=== PATIENT | male | born 1955 | race Caucasian/White ===

== ENCOUNTER 2020-08-19 20:20 | Inpatient (IN) ==
[2020-08-20] MEDS ORDERED: Acetaminophen 325 MG TABLET PO PRN (15:52)
[2020-08-20] MEDS ORDERED: Ondansetron ODT 4 MG TAB.RAPDIS SL PRN (15:52)
[2020-08-20] MEDS ORDERED: Dextrose Gel 15 GM/37.5 ML TUBE PO PRN ×2 (15:56)
[2020-08-20] MEDS ORDERED: D5% in Water 1,000 ML IVC PRN (15:56)
[2020-08-20] MEDS ORDERED: *HR* Dextrose 50 % in Water (Vial) 50 ML VIAL IVP PRN (15:56)
[2020-08-20] MEDS: Insulin LISPRO 300 UNITS/3 ML VIAL SUBQ SCH ×2 (17:37→21:10)
[2020-08-20] MEDS: Furosemide 20 MG TABLET PO SCH (17:41)
[2020-08-20] MEDS: Apixaban 5 MG TABLET PO SCH (21:00)
[2020-08-20] MEDS: *HR* Ticagrelor 90 MG TABLET PO SCH (21:01)
[2020-08-20] MEDS: Gabapentin 100 MG CAPSULE PO SCH (21:01)
[2020-08-21 06:39] LABS: Basophils # 0.1 K/mcL (0.0-0.2); Basophils % 0.5 %; Eosinophils # 0.1 K/mcL (0.0-0.6); Eosinophils % 0.3 %; Hematocrit 33.9 % (37.5-50.1); Hemoglobin 10.5 g/dL (12.9-16.9); Immature Granulocytes % 2.7 % (0-4); Lymphocytes # 2.4 K/mcL (0.6-4.6); Lymphocytes % 12.8 %; Mean Corpuscular Hemoglobin 24.9 pg (28.0-33.3); Mean Corpuscular Volume 80.3 fL (83.0-100.0); Mean Platelet Volume 9.2 fL (9.4-12.4); Monocytes % 8.2 %; Neutrophils # 14.2 K/mcL (1.6-8.9); Nucleated Red Blood Cells 0.2 /100 WBC (0); Platelet Count 471 K/mcL (140-400); Red Blood Count 4.22 M/mcL (4.19-5.50); Red Cell Distribution Width 17.3 % (11.5-14.5); Segmented Neutrophils % 75.5 %; White Blood Count 18.8 K/mcL (4.3-11.1)
[2020-08-21 06:41] LABS: Monocytes # 1.5 K/mcL (0.0-1.3)
[2020-08-21 06:55] LABS: INR 2.7; Prothrombin Time 30.8 Seconds (9.4-12.1)
[2020-08-21 07:38] LABS: Calcium 8.7 mg/dL (8.6-10.3); Potassium 4.5 mEq/L (3.5-5.1)
[2020-08-21] MEDS: DilTIAZem CD (24hr) 120 MG CAP.ER.24H PO SCH (08:21)
[2020-08-21] MEDS: *HR* Amiodarone 200 MG TABLET PO SCH (08:21)
[2020-08-21] MEDS: Spironolactone 25 MG TABLET PO SCH (08:21)
[2020-08-21] MEDS: Apixaban 5 MG TABLET PO SCH ×2 (08:22→20:40)
[2020-08-21] MEDS: Insulin LISPRO 300 UNITS/3 ML VIAL SUBQ SCH ×4 (08:22→20:41)
[2020-08-21] MEDS: Gabapentin 100 MG CAPSULE PO SCH ×3 (08:22→20:41)
[2020-08-21] MEDS: Furosemide 20 MG TABLET PO SCH ×3 (08:22→17:49)
[2020-08-21] MEDS: *HR* Ticagrelor 90 MG TABLET PO SCH ×2 (08:22→20:40)
[2020-08-21] MEDS: *HR* Digoxin 0.125 MG TABLET PO SCH (08:22)
[2020-08-21] MEDS: Aspirin Enteric Coated 81 MG Tablet PO SCH (08:22)
[2020-08-21] MEDS ORDERED: *HR* SitaGLIPtin 100 MG TABLET PO SCH (09:00)
[2020-08-21] MEDS: EMPAGLIFLOZIN 10 MG PO SCH (11:01)
[2020-08-21] MEDS: Fluticasone Propionate Nasal 50 MCG/SPRAY BOTTLE NS SCH (11:04)
[2020-08-21] MEDS ORDERED: Ipratropium/Albuterol Neb 3 ML IH PRN (16:23)
[2020-08-21] MEDS: Melatonin 3 MG TABLET PO PRN (20:41)
[2020-08-22 08:41] LABS: Hematocrit 35.2 % (37.5-50.1); Hemoglobin 10.8 g/dL (12.9-16.9); Mean Corpuscular HGB Conc 30.7 g/dL (31.6-35.5); Mean Corpuscular Hemoglobin 24.8 pg (28.0-33.3); Mean Corpuscular Volume 80.9 fL (83.0-100.0); Mean Platelet Volume 9.5 fL (9.4-12.4); Platelet Count 444 K/mcL (140-400); Red Blood Count 4.35 M/mcL (4.19-5.50); Red Cell Distribution Width 17.8 % (11.5-14.5); White Blood Count 15.5 K/mcL (4.3-11.1)
[2020-08-22] MEDS: Fluticasone Propionate Nasal 50 MCG/SPRAY BOTTLE NS SCH (08:47)
[2020-08-22] MEDS: Insulin LISPRO 300 UNITS/3 ML VIAL SUBQ SCH ×4 (08:47→20:13)
[2020-08-22] MEDS: *HR* SitaGLIPtin 25 MG TABLET PO SCH (08:48)
[2020-08-22] MEDS: *HR* Digoxin 0.125 MG TABLET PO SCH (08:48)
[2020-08-22] MEDS: *HR* Ticagrelor 90 MG TABLET PO SCH ×2 (08:48→20:15)
[2020-08-22] MEDS: Aspirin Enteric Coated 81 MG Tablet PO SCH (08:49)
[2020-08-22] MEDS: *HR* Amiodarone 200 MG TABLET PO SCH (08:49)
[2020-08-22] MEDS: Apixaban 5 MG TABLET PO SCH ×2 (08:49→20:15)
[2020-08-22] MEDS: Gabapentin 100 MG CAPSULE PO SCH ×3 (08:49→20:14)
[2020-08-22] MEDS: Spironolactone 25 MG TABLET PO SCH (08:49)
[2020-08-22] MEDS: DilTIAZem CD (24hr) 120 MG CAP.ER.24H PO SCH (08:49)
[2020-08-22] MEDS: Furosemide 20 MG TABLET PO SCH ×2 (08:50→16:50)
[2020-08-22] MEDS: EMPAGLIFLOZIN 10 MG PO SCH (08:50)
[2020-08-22 09:00] LABS: Calcium 8.5 mg/dL (8.6-10.3); Potassium 4.4 mEq/L (3.5-5.1)
[2020-08-22] MEDS: Insulin DETEMIR 100 UNIT/ML X5UNITS SUBQ SCH ×2 (13:38→20:14)
[2020-08-23] MEDS: Melatonin 3 MG TABLET PO PRN ×2 (02:22→21:03)
[2020-08-23] MEDS: Aspirin Enteric Coated 81 MG Tablet PO SCH (07:50)
[2020-08-23] MEDS: *HR* SitaGLIPtin 25 MG TABLET PO SCH (07:50)
[2020-08-23] MEDS: *HR* Ticagrelor 90 MG TABLET PO SCH ×2 (07:51→21:03)
[2020-08-23] MEDS: Gabapentin 100 MG CAPSULE PO SCH ×3 (07:51→21:02)
[2020-08-23] MEDS: Furosemide 20 MG TABLET PO SCH ×2 (07:51→17:11)
[2020-08-23] MEDS: *HR* Digoxin 0.125 MG TABLET PO SCH (07:51)
[2020-08-23] MEDS: *HR* Amiodarone 200 MG TABLET PO SCH (07:51)
[2020-08-23] MEDS: Apixaban 5 MG TABLET PO SCH ×2 (07:52→21:03)
[2020-08-23] MEDS: Fluticasone Propionate Nasal 50 MCG/SPRAY BOTTLE NS SCH (07:53)
[2020-08-23] MEDS: Spironolactone 25 MG TABLET PO SCH (07:54)
[2020-08-23] MEDS: DilTIAZem CD (24hr) 120 MG CAP.ER.24H PO SCH (07:54)
[2020-08-23] MEDS: EMPAGLIFLOZIN 10 MG PO SCH (07:55)
[2020-08-23] MEDS: Insulin LISPRO 300 UNITS/3 ML VIAL SUBQ SCH ×4 (09:19→21:12)
[2020-08-23] MEDS: Insulin DETEMIR 100 UNIT/ML X5UNITS SUBQ SCH ×2 (09:52→21:02)
[2020-08-24] MEDS: Insulin LISPRO 300 UNITS/3 ML VIAL SUBQ SCH ×4 (07:34→21:54)
[2020-08-24] MEDS: EMPAGLIFLOZIN 10 MG PO SCH (07:46)
[2020-08-24] MEDS: *HR* Digoxin 0.125 MG TABLET PO SCH (09:40)
[2020-08-24] MEDS: Spironolactone 25 MG TABLET PO SCH (09:41)
[2020-08-24] MEDS: Aspirin Enteric Coated 81 MG Tablet PO SCH (09:41)
[2020-08-24] MEDS: DilTIAZem CD (24hr) 120 MG CAP.ER.24H PO SCH (09:41)
[2020-08-24] MEDS: Gabapentin 100 MG CAPSULE PO SCH ×3 (09:41→21:53)
[2020-08-24] MEDS: Apixaban 5 MG TABLET PO SCH ×2 (09:41→21:53)
[2020-08-24] MEDS: *HR* SitaGLIPtin 25 MG TABLET PO SCH (09:41)
[2020-08-24] MEDS: Furosemide 20 MG TABLET PO SCH ×2 (09:41→16:29)
[2020-08-24] MEDS: *HR* Amiodarone 200 MG TABLET PO SCH (09:42)
[2020-08-24] MEDS: Insulin DETEMIR 100 UNIT/ML X5UNITS SUBQ SCH ×2 (09:42→21:54)
[2020-08-24] MEDS: *HR* Ticagrelor 90 MG TABLET PO SCH ×2 (09:42→21:53)
[2020-08-24] MEDS: Fluticasone Propionate Nasal 50 MCG/SPRAY BOTTLE NS SCH (09:51)
[2020-08-24] MEDS ORDERED: *HR* HYDROcodone/Acet 5/325 mg TABLET PO PRN (14:12)
[2020-08-24] MEDS: Melatonin 3 MG TABLET PO PRN (21:53)
[2020-08-25] MEDS: Insulin LISPRO 300 UNITS/3 ML VIAL SUBQ SCH ×4 (07:55→21:15)
[2020-08-25] MEDS: *HR* SitaGLIPtin 25 MG TABLET PO SCH (08:07)
[2020-08-25] MEDS: Furosemide 20 MG TABLET PO SCH ×2 (08:08→16:28)
[2020-08-25] MEDS: Apixaban 5 MG TABLET PO SCH ×2 (08:08→19:54)
[2020-08-25] MEDS: Spironolactone 25 MG TABLET PO SCH (08:08)
[2020-08-25] MEDS: *HR* Ticagrelor 90 MG TABLET PO SCH ×2 (08:08→19:54)
[2020-08-25] MEDS: Aspirin Enteric Coated 81 MG Tablet PO SCH (08:08)
[2020-08-25] MEDS: Gabapentin 100 MG CAPSULE PO SCH ×3 (08:08→19:54)
[2020-08-25] MEDS: *HR* Digoxin 0.125 MG TABLET PO SCH (08:08)
[2020-08-25] MEDS: DilTIAZem CD (24hr) 120 MG CAP.ER.24H PO SCH (08:08)
[2020-08-25] MEDS: *HR* Amiodarone 200 MG TABLET PO SCH (08:08)
[2020-08-25] MEDS: Insulin DETEMIR 100 UNIT/ML X5UNITS SUBQ SCH ×2 (09:48→21:15)
[2020-08-25] MEDS: Fluticasone Propionate Nasal 50 MCG/SPRAY BOTTLE NS SCH (09:48)
[2020-08-25] MEDS: EMPAGLIFLOZIN 10 MG PO SCH (09:50)
[2020-08-25 10:35] LABS: Basophils # 0.1 K/mcL (0.0-0.2); Basophils % 0.4 %; Hematocrit 33.8 % (37.5-50.1); Hemoglobin 10.3 g/dL (12.9-16.9); Immature Granulocytes % 2.4 % (0-4); Lymphocytes # 1.3 K/mcL (0.6-4.6); Mean Corpuscular HGB Conc 30.5 g/dL (31.6-35.5); Mean Corpuscular Hemoglobin 24.8 pg (28.0-33.3); Mean Corpuscular Volume 81.3 fL (83.0-100.0); Mean Platelet Volume 9.1 fL (9.4-12.4); Monocytes # 1.7 K/mcL (0.0-1.3); Neutrophils # 17.8 K/mcL (1.6-8.9); Nucleated Red Blood Cells 0.1 /100 WBC (0); Platelet Count 413 K/mcL (140-400); Red Blood Count 4.16 M/mcL (4.19-5.50); Red Cell Distribution Width 17.7 % (11.5-14.5); Segmented Neutrophils % 83.2 %; White Blood Count 21.4 K/mcL (4.3-11.1)
[2020-08-25 10:48] LABS: BUN/Creatinine Ratio 23 (6-26); Blood Urea Nitrogen 27 mg/dL (8-23); Calcium 8.6 mg/dL (8.6-10.3); Carbon Dioxide 24 mEq/L (23-29); Chloride 99 mEq/L (98-107); Glucose 123 mg/dL (70-105); Osmolality,Calculated 276 (280-300); Potassium 4.1 mEq/L (3.5-5.1); Sodium 130 mEq/L (136-145); eGFR For African Americans > 60 (> 60); eGFR For Non-African Americans > 60 (> 60)
[2020-08-25] MEDS ORDERED: Furosemide 20 MG TABLET PO STA (14:26)
[2020-08-25] MEDS: Doxycycline 100 MG in 0.9 % Sodium Chloride Mini Bag 100 ML IVPB SCH (19:49)
[2020-08-25 21:04] LABS: Bilirubin,Urine Negative (Negative); Blood,Urine Trace-lysed (Negative); Clarity,Urine Clear (Clear); Color,Urine Yellow (Yellow); Glucose,Urine (UA) Normal (Normal); Ketones,Urine Negative (Negative); Leukocyte Esterase,Urine Trace (Negative); Nitrite,Urine Negative (Negative); PH,Urine 5.5 pH Units (5.0-8.0); Protein,Urine Negative (Neg-Trace); Specific Gravity,Urine 1.015 (1.010-1.025); Urobilinogen,Urine Normal (Normal)
[2020-08-25] MEDS ORDERED: 0.9 % Sodium Chloride 500 ML ONE (22:10)
[2020-08-26 01:19] LABS: Basophils # 0.1 K/mcL (0.0-0.2); Basophils % 0.4 %; Eosinophils % 0.1 %; Hematocrit 34.1 % (37.5-50.1); Hemoglobin 10.4 g/dL (12.9-16.9); Immature Granulocytes % 3.9 % (0-4); Lymphocytes % 7.1 %; Mean Corpuscular HGB Conc 30.5 g/dL (31.6-35.5); Mean Corpuscular Hemoglobin 24.8 pg (28.0-33.3); Mean Corpuscular Volume 81.2 fL (83.0-100.0); Mean Platelet Volume 9.2 fL (9.4-12.4); Monocytes # 1.5 K/mcL (0.0-1.3); Monocytes % 6.1 %; Neutrophils # 20.3 K/mcL (1.6-8.9); Platelet Count 456 K/mcL (140-400); Red Cell Distribution Width 17.8 % (11.5-14.5); Segmented Neutrophils % 82.4 %; White Blood Count 24.6 K/mcL (4.3-11.1)
[2020-08-26 01:28] LABS: Lymphocytes # 1.8 K/mcL (0.6-4.6)
[2020-08-26 01:30] LABS: BUN/Creatinine Ratio 22 (6-26); Blood Urea Nitrogen 26 mg/dL (8-23); Calcium 8.3 mg/dL (8.6-10.3); Carbon Dioxide 21 mEq/L (23-29); Chloride 99 mEq/L (98-107); Glucose 125 mg/dL (70-105); Osmolality,Calculated 274 (280-300); Potassium 4.3 mEq/L (3.5-5.1); Sodium 129 mEq/L (136-145); eGFR For African Americans > 60 (> 60); eGFR For Non-African Americans > 60 (> 60)
[2020-08-26] MEDS: Doxycycline 100 MG in 0.9 % Sodium Chloride Mini Bag 100 ML IVPB SCH (05:25)
[2020-08-26] MEDS ORDERED: Furosemide 20 MG/2 ML VIAL IVP ONE (09:10)
[2020-08-26] MEDS ORDERED: methylPREDNISolone 125 MG/2 ML VIAL IVP ONE (09:11)
[2020-08-26] MEDS: Insulin LISPRO 300 UNITS/3 ML VIAL SUBQ SCH ×4 (09:43→21:28)
[2020-08-26] MEDS: DilTIAZem CD (24hr) 120 MG CAP.ER.24H PO SCH (09:56)
[2020-08-26] MEDS: *HR* Digoxin 0.125 MG TABLET PO SCH (09:58)
[2020-08-26] MEDS: *HR* Ticagrelor 90 MG TABLET PO SCH ×2 (09:58→20:53)
[2020-08-26] MEDS: Spironolactone 25 MG TABLET PO SCH (09:58)
[2020-08-26] MEDS: *HR* Amiodarone 200 MG TABLET PO SCH (09:58)
[2020-08-26] MEDS: Aspirin Enteric Coated 81 MG Tablet PO SCH (09:58)
[2020-08-26] MEDS: Apixaban 5 MG TABLET PO SCH ×2 (09:58→20:53)
[2020-08-26] MEDS: Gabapentin 100 MG CAPSULE PO SCH ×3 (09:58→20:53)
[2020-08-26] MEDS: *HR* SitaGLIPtin 25 MG TABLET PO SCH (09:59)
[2020-08-26] MEDS: Furosemide 20 MG TABLET PO SCH (09:59)
[2020-08-26] MEDS: Insulin DETEMIR 100 UNIT/ML X5UNITS SUBQ SCH ×2 (10:01→20:53)
[2020-08-26] MEDS: Fluticasone Propionate Nasal 50 MCG/SPRAY BOTTLE NS SCH (10:08)
[2020-08-26] MEDS: Ipratropium/Albuterol Neb 3 ML IH SCH ×4 (11:17→20:21)
[2020-08-26 11:49] LABS: ABG Base Excess -4 mEq/L (-2 to 3); ABG HCO3 18 mEq/L (21-27); ABG Oxygen Saturation 91 % (95-98); ABG PCO2 23 mmHg (35-45); ABG PO2 53 mmHg (85-104); ABG TCO2 19 mEq/L (20-26)
[2020-08-26] MEDS: EMPAGLIFLOZIN 10 MG PO SCH (11:55)
[2020-08-26 12:58] LABS: Estimated Average Glucose 166 mg/dl; Hemoglobin A1C 7.4 %
[2020-08-26] MEDS: MethylPREDNISolone 40 MG/ML VIAL IVP SCH (15:23)
[2020-08-26] MEDS: Piperacillin/Tazobactam 3.375 GM in 0.9 % Sodium Chloride Mini Bag 100 ML IVPB SCH (16:46)
[2020-08-26] MEDS: Furosemide 20 MG/2 ML VIAL IVP SCH (16:54)
[2020-08-26 23:36] LABS: Adenovirus Not Detected (Not Detect); Bordetella Pertussis Not Detected (Not Detect); Chlamydophila pneumoniae Not Detected (Not Detect); Coronavirus 229E Not Detected (Not Detect); Coronavirus HKU1 Not Detected (Not Detect); Coronavirus NL63 Not Detected (Not Detect); Coronavirus OC43 Not Detected (Not Detect); Human Metapneumovirus Not Detected (Not Detect); Human Rhinovirus/Enterovirus Not Detected (Not Detect); Influenza A Subtype 2009 H1 Not Detected (Not Detect); Influenza B Not Detected (Not Detect); Mycoplasma pneumoniae Not Detected (Not Detect); Parainfluenza Virus 1 Not Detected (Not Detect); Parainfluenza Virus 2 Not Detected (Not Detect); Parainfluenza Virus 3 Not Detected (Not Detect); Parainfluenza Virus 4 Not Detected (Not Detect); Respiratory Syncytial Virus Not Detected (Not Detect); SARS-CoV-2 Not Detected (Not Detect)
[2020-08-27] MEDS: Piperacillin/Tazobactam 3.375 GM in 0.9 % Sodium Chloride Mini Bag 100 ML IVPB SCH ×2 (00:04→09:48)
[2020-08-27] MEDS: MethylPREDNISolone 40 MG/ML VIAL IVP SCH ×2 (00:15→09:44)
[2020-08-27 04:08] LABS: Basophils % 0.1 %; Hematocrit 31.5 % (37.5-50.1); Hemoglobin 9.8 g/dL (12.9-16.9); Immature Granulocytes % 1.6 % (0-4); Lymphocytes % 2.2 %; Mean Corpuscular HGB Conc 31.1 g/dL (31.6-35.5); Mean Corpuscular Hemoglobin 24.6 pg (28.0-33.3); Mean Corpuscular Volume 78.9 fL (83.0-100.0); Mean Platelet Volume 9.5 fL (9.4-12.4); Monocytes % 3.4 %; Neutrophils # 27.2 K/mcL (1.6-8.9); Platelet Count 471 K/mcL (140-400); Red Blood Count 3.99 M/mcL (4.19-5.50); Red Cell Distribution Width 17.5 % (11.5-14.5); Segmented Neutrophils % 92.7 %; White Blood Count 29.3 K/mcL (4.3-11.1)
[2020-08-27 04:09] LABS: Lymphocytes # 0.6 K/mcL (0.6-4.6)
[2020-08-27 04:58] LABS: BUN/Creatinine Ratio 24 (6-26); Blood Urea Nitrogen 29 mg/dL (8-23); Calcium 8.6 mg/dL (8.6-10.3); Carbon Dioxide 18 mEq/L (23-29); Chloride 100 mEq/L (98-107); Glucose 250 mg/dL (70-105); Osmolality,Calculated 282 (280-300); Potassium 4.2 mEq/L (3.5-5.1); Sodium 129 mEq/L (136-145); eGFR For African Americans > 60 (> 60); eGFR For Non-African Americans 60 (> 60)
[2020-08-27 05:18] LABS: Platelet Estimate Increased (Normal)
[2020-08-27] MEDS: Ipratropium/Albuterol Neb 3 ML IH SCH ×4 (05:55→11:28)
[2020-08-27 07:43] LABS: ABG Base Excess -7 mEq/L (-2 to 3); ABG HCO3 15 mEq/L (21-27); ABG Oxygen Saturation 98 % (95-98); ABG PCO2 23 mmHg (35-45); ABG PH 7.43 pH Units (7.32-7.45); ABG PO2 95 mmHg (85-104); ABG TCO2 16 mEq/L (20-26); Blood Gas Pressure Support 12 cm H2O
[2020-08-27] MEDS: EMPAGLIFLOZIN 10 MG PO SCH (09:23)
[2020-08-27] MEDS: Insulin LISPRO 300 UNITS/3 ML VIAL SUBQ SCH (09:36)
[2020-08-27] MEDS: Furosemide 20 MG/2 ML VIAL IVP SCH (09:39)
[2020-08-27] MEDS: Gabapentin 100 MG CAPSULE PO SCH (09:55)
[2020-08-27] MEDS: *HR* Ticagrelor 90 MG TABLET PO SCH (09:55)
[2020-08-27] MEDS: *HR* Amiodarone 200 MG TABLET PO SCH (09:55)
[2020-08-27] MEDS: Spironolactone 25 MG TABLET PO SCH (09:56)
[2020-08-27] MEDS: Aspirin Enteric Coated 81 MG Tablet PO SCH (09:56)
[2020-08-27] MEDS: Fluticasone Propionate Nasal 50 MCG/SPRAY BOTTLE NS SCH (09:56)
[2020-08-27] MEDS: *HR* SitaGLIPtin 25 MG TABLET PO SCH (09:56)
[2020-08-27] MEDS: Apixaban 5 MG TABLET PO SCH (09:56)
[2020-08-27] MEDS: Insulin DETEMIR 100 UNIT/ML X5UNITS SUBQ SCH (09:57)
[2020-08-27] MEDS: *HR* Digoxin 0.125 MG TABLET PO SCH (09:57)
[2020-08-27 10:14] VITALS: BP 93/57
== END 2020-08-27 11:20 | disposition short-term general hospital (02) | DRG 945 ==
LOC: INPPIK 08-20 16:26
PROVIDERS: ADMIT Family Medicine; ATTEND Family Medicine

== ENCOUNTER 2020-11-14 18:27 | Inpatient (IN) ==
[2020-11-14] MEDS ORDERED: Simethicone 80 MG TAB.CHEW PO PRN (18:58)
[2020-11-14] MEDS ORDERED: *HR* Dextrose 50 % in Water (Vial) 50 ML VIAL IVP PRN (19:09)
[2020-11-14] MEDS ORDERED: D5% in Water 1,000 ML IVC PRN (19:09)
[2020-11-14] MEDS ORDERED: Dextrose Gel 15 GM/37.5 ML TUBE PO PRN ×2 (19:09)
[2020-11-14] MEDS: Apixaban 5 MG TABLET PO SCH (22:38)
[2020-11-14] MEDS: Gabapentin 100 MG CAPSULE PO SCH (22:38)
[2020-11-14] MEDS: Melatonin 3 MG TABLET PO PRN (22:38)
[2020-11-14] MEDS: *HR* HYDROcodone/Acet 10/325 mg TABLET PO PRN (22:39)
[2020-11-14] MEDS: *HR* Ticagrelor 90 MG TABLET PO SCH (22:39)
[2020-11-14] MEDS: Insulin LISPRO 300 UNITS/3 ML VIAL SUBQ SCH (22:39)
[2020-11-15] MEDS: *HR* HYDROcodone/Acet 10/325 mg TABLET PO PRN ×3 (06:30→21:02)
[2020-11-15 07:10] LABS: Basophils # 0.1 K/mcL (0.0-0.2); Basophils % 0.7 %; Eosinophils % 0.2 %; Hematocrit 36.5 % (37.5-50.1); Hemoglobin 11.3 g/dL (12.9-16.9); Immature Granulocytes % 1.4 % (0-4); Lymphocytes # 1.5 K/mcL (0.6-4.6); Lymphocytes % 10.5 %; Mean Corpuscular Volume 87.1 fL (83.0-100.0); Monocytes # 1.4 K/mcL (0.0-1.3); Monocytes % 9.8 %; Platelet Count 351 K/mcL (140-400); Red Blood Count 4.19 M/mcL (4.19-5.50); Red Cell Distribution Width 19.4 % (11.5-14.5); Segmented Neutrophils % 77.4 %; White Blood Count 14.5 K/mcL (4.3-11.1)
[2020-11-15 07:18] LABS: Neutrophils # 11.2 K/mcL (1.6-8.9)
[2020-11-15 07:30] LABS: BUN/Creatinine Ratio 21 (6-26); Blood Urea Nitrogen 27 mg/dL (8-23); Calcium 9.1 mg/dL (8.6-10.3); Carbon Dioxide 29 mEq/L (23-29); Chloride 94 mEq/L (98-107); Glucose 107 mg/dL (70-105); Osmolality,Calculated 278 (280-300); Sodium 131 mEq/L (136-145); eGFR For African Americans > 60 (> 60); eGFR For Non-African Americans 57 (> 60)
[2020-11-15] MEDS: Insulin LISPRO 300 UNITS/3 ML VIAL SUBQ SCH ×4 (07:37→21:01)
[2020-11-15] MEDS: Apixaban 5 MG TABLET PO SCH ×2 (07:40→21:02)
[2020-11-15] MEDS: Gabapentin 100 MG CAPSULE PO SCH ×3 (07:40→21:02)
[2020-11-15] MEDS: *HR* SitaGLIPtin 25 MG TABLET PO SCH (07:40)
[2020-11-15] MEDS: Aspirin Enteric Coated 81 MG Tablet PO SCH (07:40)
[2020-11-15] MEDS: *HR* Ticagrelor 90 MG TABLET PO SCH ×2 (07:40→21:02)
[2020-11-15] MEDS: *HR* Amiodarone 200 MG TABLET PO SCH (07:41)
[2020-11-15] MEDS: TRADJENTA 5 MG PO SCH (11:41)
[2020-11-15] MEDS: Spironolactone 25 MG TABLET PO SCH (11:41)
[2020-11-15] MEDS: (Empagliflozin [Jardiance] 10 MG Tablet) PO SCH (11:41)
[2020-11-15] MEDS: *HR* Digoxin 0.125 MG TABLET PO SCH (11:41)
[2020-11-15] MEDS: Furosemide 40 MG TABLET PO SCH (11:41)
[2020-11-15] MEDS: Furosemide 20 MG TABLET PO SCH (12:15)
[2020-11-15] MEDS: Nystatin POWDER 30 GM BOTTLE TP SCH ×2 (13:59→21:03)
[2020-11-15] MEDS: Melatonin 3 MG TABLET PO PRN (21:02)
[2020-11-16] MEDS: Insulin LISPRO 300 UNITS/3 ML VIAL SUBQ SCH ×4 (07:12→20:54)
[2020-11-16] MEDS: *HR* HYDROcodone/Acet 10/325 mg TABLET PO PRN ×3 (07:33→20:53)
[2020-11-16] MEDS: Aspirin Enteric Coated 81 MG Tablet PO SCH (07:33)
[2020-11-16] MEDS: Gabapentin 100 MG CAPSULE PO SCH ×3 (07:33→20:53)
[2020-11-16] MEDS: Spironolactone 25 MG TABLET PO SCH (07:33)
[2020-11-16] MEDS: *HR* Digoxin 0.125 MG TABLET PO SCH (07:33)
[2020-11-16] MEDS: Apixaban 5 MG TABLET PO SCH ×2 (07:33→20:53)
[2020-11-16] MEDS: *HR* SitaGLIPtin 25 MG TABLET PO SCH (07:33)
[2020-11-16] MEDS: *HR* Amiodarone 200 MG TABLET PO SCH (07:34)
[2020-11-16] MEDS: (Empagliflozin [Jardiance] 10 MG Tablet) PO SCH (07:34)
[2020-11-16] MEDS: TRADJENTA 5 MG PO SCH (07:34)
[2020-11-16] MEDS: *HR* Ticagrelor 90 MG TABLET PO SCH ×2 (07:34→20:53)
[2020-11-16] MEDS: Nystatin POWDER 30 GM BOTTLE TP SCH ×2 (07:55→20:55)
[2020-11-16] MEDS: Furosemide 40 MG TABLET PO SCH (11:46)
[2020-11-16] MEDS: Furosemide 20 MG TABLET PO SCH (14:45)
[2020-11-16] MEDS: Melatonin 3 MG TABLET PO PRN (20:52)
[2020-11-17] MEDS: *HR* Digoxin 0.125 MG TABLET PO SCH (08:08)
[2020-11-17] MEDS: Aspirin Enteric Coated 81 MG Tablet PO SCH (08:09)
[2020-11-17] MEDS: Gabapentin 100 MG CAPSULE PO SCH ×3 (08:09→20:26)
[2020-11-17] MEDS: *HR* Ticagrelor 90 MG TABLET PO SCH ×2 (08:09→20:26)
[2020-11-17] MEDS: *HR* Amiodarone 200 MG TABLET PO SCH (08:09)
[2020-11-17] MEDS: Apixaban 5 MG TABLET PO SCH ×2 (08:09→20:26)
[2020-11-17] MEDS: *HR* SitaGLIPtin 25 MG TABLET PO SCH (08:09)
[2020-11-17] MEDS: Furosemide 40 MG TABLET PO SCH (08:09)
[2020-11-17] MEDS: (Empagliflozin [Jardiance] 10 MG Tablet) PO SCH (08:10)
[2020-11-17] MEDS: TRADJENTA 5 MG PO SCH (08:10)
[2020-11-17] MEDS: Spironolactone 25 MG TABLET PO SCH (08:10)
[2020-11-17] MEDS: Insulin LISPRO 300 UNITS/3 ML VIAL SUBQ SCH ×4 (08:13→23:05)
[2020-11-17] MEDS: Nystatin POWDER 30 GM BOTTLE TP SCH ×2 (08:19→20:27)
[2020-11-17] MEDS: Furosemide 20 MG TABLET PO SCH (11:48)
[2020-11-17] MEDS: *HR* HYDROcodone/Acet 10/325 mg TABLET PO PRN ×2 (14:12→20:26)
[2020-11-17] MEDS: Melatonin 3 MG TABLET PO PRN (20:26)
[2020-11-18] MEDS: *HR* HYDROcodone/Acet 10/325 mg TABLET PO PRN ×3 (06:11→21:01)
[2020-11-18] MEDS: Insulin LISPRO 300 UNITS/3 ML VIAL SUBQ SCH ×4 (07:45→21:03)
[2020-11-18] MEDS: *HR* SitaGLIPtin 25 MG TABLET PO SCH (07:47)
[2020-11-18] MEDS: Spironolactone 25 MG TABLET PO SCH (07:48)
[2020-11-18] MEDS: *HR* Amiodarone 200 MG TABLET PO SCH (07:48)
[2020-11-18] MEDS: Furosemide 40 MG TABLET PO SCH (07:48)
[2020-11-18] MEDS: *HR* Ticagrelor 90 MG TABLET PO SCH ×2 (07:48→21:01)
[2020-11-18] MEDS: Aspirin Enteric Coated 81 MG Tablet PO SCH (07:48)
[2020-11-18] MEDS: Gabapentin 100 MG CAPSULE PO SCH ×3 (07:48→21:01)
[2020-11-18] MEDS: Apixaban 5 MG TABLET PO SCH ×2 (07:48→21:01)
[2020-11-18] MEDS: *HR* Digoxin 0.125 MG TABLET PO SCH (07:48)
[2020-11-18] MEDS: TRADJENTA 5 MG PO SCH (07:49)
[2020-11-18] MEDS: (Empagliflozin [Jardiance] 10 MG Tablet) PO SCH (07:49)
[2020-11-18] MEDS: Nystatin POWDER 30 GM BOTTLE TP SCH ×2 (07:49→21:05)
[2020-11-18] MEDS: Furosemide 20 MG TABLET PO SCH (13:24)
[2020-11-18] MEDS: *HR* HYDROcodone/Acet 5/325 mg TABLET PO PRN (17:51)
[2020-11-18] MEDS: Melatonin 3 MG TABLET PO PRN (21:01)
[2020-11-19] MEDS: *HR* HYDROcodone/Acet 5/325 mg TABLET PO PRN (00:39)
[2020-11-19] MEDS: Insulin LISPRO 300 UNITS/3 ML VIAL SUBQ SCH ×4 (08:04→20:49)
[2020-11-19 08:07] LABS: Basophils # 0.1 K/mcL (0.0-0.2); Basophils % 1.1 %; Eosinophils # 0.4 K/mcL (0.0-0.6); Eosinophils % 3.1 %; Hematocrit 33.9 % (37.5-50.1); Hemoglobin 10.5 g/dL (12.9-16.9); Immature Granulocytes % 4.2 % (0-4); Lymphocytes # 2.2 K/mcL (0.6-4.6); Lymphocytes % 17.1 %; Mean Corpuscular Hemoglobin 27.1 pg (28.0-33.3); Mean Corpuscular Volume 87.6 fL (83.0-100.0); Mean Platelet Volume 8.7 fL (9.4-12.4); Monocytes # 1.1 K/mcL (0.0-1.3); Monocytes % 8.4 %; Neutrophils # 8.3 K/mcL (1.6-8.9); Platelet Count 423 K/mcL (140-400); Red Blood Count 3.87 M/mcL (4.19-5.50); Red Cell Distribution Width 18.3 % (11.5-14.5); Segmented Neutrophils % 66.1 %; White Blood Count 12.6 K/mcL (4.3-11.1)
[2020-11-19 08:18] LABS: BUN/Creatinine Ratio 33 (6-26); Blood Urea Nitrogen 40 mg/dL (8-23); Calcium 8.8 mg/dL (8.6-10.3); Carbon Dioxide 27 mEq/L (23-29); Chloride 94 mEq/L (98-107); Glucose 99 mg/dL (70-105); Osmolality,Calculated 280 (280-300); Sodium 130 mEq/L (136-145); eGFR For African Americans > 60 (> 60); eGFR For Non-African Americans 59 (> 60)
[2020-11-19] MEDS: *HR* HYDROcodone/Acet 10/325 mg TABLET PO PRN ×2 (08:58→20:49)
[2020-11-19] MEDS: *HR* Amiodarone 200 MG TABLET PO SCH (08:59)
[2020-11-19] MEDS: Apixaban 5 MG TABLET PO SCH ×2 (08:59→20:49)
[2020-11-19] MEDS: Aspirin Enteric Coated 81 MG Tablet PO SCH (08:59)
[2020-11-19] MEDS: Furosemide 40 MG TABLET PO SCH (08:59)
[2020-11-19] MEDS: Gabapentin 100 MG CAPSULE PO SCH ×3 (08:59→20:49)
[2020-11-19] MEDS: Spironolactone 25 MG TABLET PO SCH (09:03)
[2020-11-19] MEDS: *HR* Ticagrelor 90 MG TABLET PO SCH ×2 (09:03→20:48)
[2020-11-19] MEDS: *HR* SitaGLIPtin 25 MG TABLET PO SCH (09:03)
[2020-11-19] MEDS: *HR* Digoxin 0.125 MG TABLET PO SCH (09:21)
[2020-11-19] MEDS: Nystatin POWDER 30 GM BOTTLE TP SCH ×2 (09:23→20:49)
[2020-11-19] MEDS: (Empagliflozin [Jardiance] 10 MG Tablet) PO SCH (09:26)
[2020-11-19] MEDS: TRADJENTA 5 MG PO SCH (09:27)
[2020-11-19] MEDS: Furosemide 20 MG TABLET PO SCH (12:00)
[2020-11-19] MEDS: Melatonin 3 MG TABLET PO PRN (20:48)
[2020-11-20] MEDS: *HR* HYDROcodone/Acet 10/325 mg TABLET PO PRN (05:33)
[2020-11-20] MEDS: *HR* Ticagrelor 90 MG TABLET PO SCH ×2 (08:38→20:18)
[2020-11-20] MEDS: Aspirin Enteric Coated 81 MG Tablet PO SCH (08:38)
[2020-11-20] MEDS: Spironolactone 25 MG TABLET PO SCH (08:38)
[2020-11-20] MEDS: Gabapentin 100 MG CAPSULE PO SCH ×3 (08:38→20:18)
[2020-11-20] MEDS: Insulin LISPRO 300 UNITS/3 ML VIAL SUBQ SCH ×4 (08:38→20:17)
[2020-11-20] MEDS: *HR* HYDROcodone/Acet 5/325 mg TABLET PO PRN (08:38)
[2020-11-20] MEDS: Furosemide 40 MG TABLET PO SCH (08:38)
[2020-11-20] MEDS: *HR* Amiodarone 200 MG TABLET PO SCH (08:39)
[2020-11-20] MEDS: *HR* SitaGLIPtin 25 MG TABLET PO SCH (08:39)
[2020-11-20] MEDS: Apixaban 5 MG TABLET PO SCH ×2 (08:39→20:18)
[2020-11-20] MEDS: *HR* Digoxin 0.125 MG TABLET PO SCH (08:39)
[2020-11-20] MEDS: Nystatin POWDER 30 GM BOTTLE TP SCH ×2 (08:42→20:18)
[2020-11-20] MEDS: (Empagliflozin [Jardiance] 10 MG Tablet) PO SCH (08:45)
[2020-11-20] MEDS: TRADJENTA 5 MG PO SCH (08:45)
[2020-11-20] MEDS: Furosemide 20 MG TABLET PO SCH (12:06)
[2020-11-21] MEDS: *HR* HYDROcodone/Acet 10/325 mg TABLET PO PRN ×4 (03:04→20:05)
[2020-11-21] MEDS: Insulin LISPRO 300 UNITS/3 ML VIAL SUBQ SCH ×4 (07:40→20:05)
[2020-11-21] MEDS: Furosemide 40 MG TABLET PO SCH (08:02)
[2020-11-21] MEDS: *HR* SitaGLIPtin 25 MG TABLET PO SCH (08:02)
[2020-11-21] MEDS: *HR* Ticagrelor 90 MG TABLET PO SCH ×2 (08:03→20:05)
[2020-11-21] MEDS: Gabapentin 100 MG CAPSULE PO SCH ×3 (08:03→20:05)
[2020-11-21] MEDS: Spironolactone 25 MG TABLET PO SCH (08:03)
[2020-11-21] MEDS: Apixaban 5 MG TABLET PO SCH ×2 (08:03→20:05)
[2020-11-21] MEDS: *HR* Amiodarone 200 MG TABLET PO SCH (08:03)
[2020-11-21] MEDS: Aspirin Enteric Coated 81 MG Tablet PO SCH (08:03)
[2020-11-21] MEDS: *HR* Digoxin 0.125 MG TABLET PO SCH (08:03)
[2020-11-21] MEDS: Nystatin POWDER 30 GM BOTTLE TP SCH ×2 (08:04→20:06)
[2020-11-21] MEDS: TRADJENTA 5 MG PO SCH (08:06)
[2020-11-21] MEDS: (Empagliflozin [Jardiance] 10 MG Tablet) PO SCH (08:06)
[2020-11-21] MEDS: Furosemide 20 MG TABLET PO SCH (11:52)
[2020-11-21] MEDS: Melatonin 3 MG TABLET PO PRN (22:09)
[2020-11-21] MEDS: *HR* HYDROcodone/Acet 5/325 mg TABLET PO PRN (22:11)
[2020-11-22] MEDS: *HR* HYDROcodone/Acet 10/325 mg TABLET PO PRN ×2 (06:07→20:50)
[2020-11-22] MEDS: *HR* SitaGLIPtin 25 MG TABLET PO SCH (08:51)
[2020-11-22] MEDS: Aspirin Enteric Coated 81 MG Tablet PO SCH (08:52)
[2020-11-22] MEDS: *HR* Amiodarone 200 MG TABLET PO SCH (08:52)
[2020-11-22] MEDS: Spironolactone 25 MG TABLET PO SCH (08:52)
[2020-11-22] MEDS: Apixaban 5 MG TABLET PO SCH ×2 (08:52→20:50)
[2020-11-22] MEDS: *HR* Digoxin 0.125 MG TABLET PO SCH (08:52)
[2020-11-22] MEDS: *HR* HYDROcodone/Acet 5/325 mg TABLET PO PRN (08:52)
[2020-11-22] MEDS: Furosemide 40 MG TABLET PO SCH (08:52)
[2020-11-22] MEDS: Gabapentin 100 MG CAPSULE PO SCH ×3 (08:52→20:50)
[2020-11-22] MEDS: *HR* Ticagrelor 90 MG TABLET PO SCH ×2 (08:53→20:50)
[2020-11-22] MEDS: (Empagliflozin [Jardiance] 10 MG Tablet) PO SCH (08:54)
[2020-11-22] MEDS: Nystatin POWDER 30 GM BOTTLE TP SCH ×2 (08:54→20:51)
[2020-11-22] MEDS: TRADJENTA 5 MG PO SCH (08:54)
[2020-11-22] MEDS: Insulin LISPRO 300 UNITS/3 ML VIAL SUBQ SCH ×4 (08:55→20:55)
[2020-11-22] MEDS: Furosemide 20 MG TABLET PO SCH (13:20)
[2020-11-23] MEDS: *HR* HYDROcodone/Acet 10/325 mg TABLET PO PRN ×3 (00:38→20:06)
[2020-11-23] MEDS: Melatonin 3 MG TABLET PO PRN (00:38)
[2020-11-23] MEDS: Insulin LISPRO 300 UNITS/3 ML VIAL SUBQ SCH ×4 (10:00→20:06)
[2020-11-23] MEDS: *HR* Amiodarone 200 MG TABLET PO SCH (10:00)
[2020-11-23] MEDS: *HR* Digoxin 0.125 MG TABLET PO SCH (10:00)
[2020-11-23] MEDS: Gabapentin 100 MG CAPSULE PO SCH ×3 (10:00→20:06)
[2020-11-23] MEDS: *HR* Ticagrelor 90 MG TABLET PO SCH ×2 (10:00→20:06)
[2020-11-23] MEDS: Aspirin Enteric Coated 81 MG Tablet PO SCH (10:00)
[2020-11-23] MEDS: Nystatin POWDER 30 GM BOTTLE TP SCH ×2 (10:01→20:08)
[2020-11-23] MEDS: Furosemide 40 MG TABLET PO SCH (10:01)
[2020-11-23] MEDS: Spironolactone 25 MG TABLET PO SCH (10:01)
[2020-11-23] MEDS: Apixaban 5 MG TABLET PO SCH ×2 (10:01→20:06)
[2020-11-23] MEDS: *HR* SitaGLIPtin 25 MG TABLET PO SCH (10:01)
[2020-11-23] MEDS: TRADJENTA 5 MG PO SCH (10:02)
[2020-11-23] MEDS: (Empagliflozin [Jardiance] 10 MG Tablet) PO SCH (10:02)
[2020-11-23] MEDS: Furosemide 20 MG TABLET PO SCH (12:30)
[2020-11-23] MEDS: Ondansetron ODT 4 MG TAB.RAPDIS SL PRN (14:52)
[2020-11-23] MEDS: Lactobacillus 1 EACH CAP.SPRINK PO SCH ×2 (14:53→20:06)
[2020-11-24] MEDS: Melatonin 3 MG TABLET PO PRN ×2 (02:32→21:12)
[2020-11-24] MEDS: *HR* HYDROcodone/Acet 10/325 mg TABLET PO PRN ×3 (02:32→21:12)
[2020-11-24 06:19] LABS: Basophils # 0.1 K/mcL (0.0-0.2); Basophils % 0.6 %; Eosinophils # 0.1 K/mcL (0.0-0.6); Eosinophils % 0.7 %; Hemoglobin 10.1 g/dL (12.9-16.9); Immature Granulocytes % 1.8 % (0-4); Lymphocytes % 12.1 %; Mean Corpuscular HGB Conc 30.6 g/dL (31.6-35.5); Mean Corpuscular Hemoglobin 27.2 pg (28.0-33.3); Mean Corpuscular Volume 88.9 fL (83.0-100.0); Mean Platelet Volume 8.8 fL (9.4-12.4); Monocytes # 1.3 K/mcL (0.0-1.3); Monocytes % 7.9 %; Neutrophils # 12.5 K/mcL (1.6-8.9); Platelet Count 522 K/mcL (140-400); Red Blood Count 3.71 M/mcL (4.19-5.50); Segmented Neutrophils % 76.9 %; White Blood Count 16.2 K/mcL (4.3-11.1)
[2020-11-24 06:37] LABS: BUN/Creatinine Ratio 29 (6-26); Blood Urea Nitrogen 33 mg/dL (8-23); Calcium 8.7 mg/dL (8.6-10.3); Carbon Dioxide 26 mEq/L (23-29); Chloride 96 mEq/L (98-107); Glucose 85 mg/dL (70-105); Magnesium 1.8 mg/dL (1.6-2.6); Osmolality,Calculated 277 (280-300); Potassium 4.1 mEq/L (3.5-5.1); Sodium 130 mEq/L (136-145); eGFR For African Americans > 60 (> 60); eGFR For Non-African Americans > 60 (> 60)
[2020-11-24] MEDS: Insulin LISPRO 300 UNITS/3 ML VIAL SUBQ SCH ×4 (08:16→21:13)
[2020-11-24] MEDS: (Empagliflozin [Jardiance] 10 MG Tablet) PO SCH (08:17)
[2020-11-24] MEDS: TRADJENTA 5 MG PO SCH (08:18)
[2020-11-24] MEDS: Spironolactone 25 MG TABLET PO SCH (08:26)
[2020-11-24] MEDS: Lactobacillus 1 EACH CAP.SPRINK PO SCH ×2 (08:26→21:12)
[2020-11-24] MEDS: Aspirin Enteric Coated 81 MG Tablet PO SCH (08:26)
[2020-11-24] MEDS: *HR* Amiodarone 200 MG TABLET PO SCH (08:26)
[2020-11-24] MEDS: Apixaban 5 MG TABLET PO SCH ×2 (08:26→21:12)
[2020-11-24] MEDS: *HR* SitaGLIPtin 25 MG TABLET PO SCH (08:26)
[2020-11-24] MEDS: *HR* Digoxin 0.125 MG TABLET PO SCH (08:27)
[2020-11-24] MEDS: Furosemide 40 MG TABLET PO SCH (08:27)
[2020-11-24] MEDS: *HR* Ticagrelor 90 MG TABLET PO SCH ×2 (08:27→21:12)
[2020-11-24] MEDS: Gabapentin 100 MG CAPSULE PO SCH ×3 (08:38→21:12)
[2020-11-24] MEDS: Nystatin POWDER 30 GM BOTTLE TP SCH ×2 (09:20→21:14)
[2020-11-24] MEDS: Ondansetron ODT 4 MG TAB.RAPDIS SL PRN ×2 (09:37→16:13)
[2020-11-24] MEDS: Furosemide 20 MG TABLET PO SCH (12:56)
[2020-11-25] MEDS: Apixaban 5 MG TABLET PO SCH ×2 (08:18→21:30)
[2020-11-25] MEDS: Nystatin POWDER 30 GM BOTTLE TP SCH ×2 (08:18→21:31)
[2020-11-25] MEDS: *HR* Ticagrelor 90 MG TABLET PO SCH ×2 (08:19→21:30)
[2020-11-25] MEDS: Spironolactone 25 MG TABLET PO SCH (08:19)
[2020-11-25] MEDS: Aspirin Enteric Coated 81 MG Tablet PO SCH (08:19)
[2020-11-25] MEDS: Gabapentin 100 MG CAPSULE PO SCH ×3 (08:19→21:30)
[2020-11-25] MEDS: *HR* Amiodarone 200 MG TABLET PO SCH (08:19)
[2020-11-25] MEDS: *HR* SitaGLIPtin 25 MG TABLET PO SCH (08:19)
[2020-11-25] MEDS: Furosemide 40 MG TABLET PO SCH (08:19)
[2020-11-25] MEDS: Lactobacillus 1 EACH CAP.SPRINK PO SCH ×2 (08:19→21:30)
[2020-11-25] MEDS: *HR* Digoxin 0.125 MG TABLET PO SCH (08:19)
[2020-11-25] MEDS: Insulin LISPRO 300 UNITS/3 ML VIAL SUBQ SCH ×4 (08:20→21:31)
[2020-11-25] MEDS: Ondansetron ODT 4 MG TAB.RAPDIS SL PRN ×2 (08:24→14:39)
[2020-11-25] MEDS: levoFLOXacin 750 MG TABLET PO SCH (09:02)
[2020-11-25] MEDS: (Empagliflozin [Jardiance] 10 MG Tablet) PO SCH (09:03)
[2020-11-25] MEDS: TRADJENTA 5 MG PO SCH (09:03)
[2020-11-25] MEDS: Furosemide 20 MG TABLET PO SCH (11:18)
[2020-11-25] MEDS: Melatonin 3 MG TABLET PO PRN (21:30)
[2020-11-25] MEDS ORDERED: Ringers Solution, Lactated 1,000 ML ONE (21:55)
[2020-11-26] MEDS ORDERED: Ringers Solution, Lactated 1,000 ML IVC ONE (03:45)
[2020-11-26] MEDS ORDERED: 0.9 % Sodium Chloride 250 ML ONE (04:02)
[2020-11-26 04:40] LABS: Basophils # 0.1 K/mcL (0.0-0.2); Basophils % 0.7 %; Eosinophils % 0.3 %; Hematocrit 29.7 % (37.5-50.1); Immature Granulocytes % 3.1 % (0-4); Lymphocytes # 1.7 K/mcL (0.6-4.6); Lymphocytes % 16.1 %; Mean Corpuscular HGB Conc 30.3 g/dL (31.6-35.5); Mean Corpuscular Hemoglobin 27.2 pg (28.0-33.3); Mean Corpuscular Volume 89.7 fL (83.0-100.0); Mean Platelet Volume 8.8 fL (9.4-12.4); Monocytes % 9.1 %; Neutrophils # 7.4 K/mcL (1.6-8.9); Platelet Count 454 K/mcL (140-400); Red Blood Count 3.31 M/mcL (4.19-5.50); Red Cell Distribution Width 18.5 % (11.5-14.5); Segmented Neutrophils % 70.7 %; White Blood Count 10.4 K/mcL (4.3-11.1)
[2020-11-26 04:55] LABS: BUN/Creatinine Ratio 22 (6-26); Blood Urea Nitrogen 25 mg/dL (8-23); Calcium 8.6 mg/dL (8.6-10.3); Carbon Dioxide 26 mEq/L (23-29); Chloride 99 mEq/L (98-107); Glucose 103 mg/dL (70-105); Osmolality,Calculated 275 (280-300); Potassium 4.2 mEq/L (3.5-5.1); Sodium 130 mEq/L (136-145); eGFR For African Americans > 60 (> 60); eGFR For Non-African Americans > 60 (> 60)
[2020-11-26 05:12] LABS: Bilirubin,Urine Negative (Negative); Blood,Urine Negative (Negative); Clarity,Urine Slightly Cloudy (Clear); Color,Urine Yellow (Yellow); Glucose,Urine (UA) Normal (Normal); Ketones,Urine Negative (Negative); Leukocyte Esterase,Urine Moderate (Negative); Nitrite,Urine Negative (Negative); Protein,Urine Negative (Neg-Trace)
[2020-11-26 05:24] LABS: RBC,Urine 0-3 per hpf (0-3)
[2020-11-26 05:26] LABS: Bacteria,Urine Few per hpf (None-Few); Squamous Epithelial Cell,Urine Few per hpf (None-Few); Trichomonas,Urine Present per hpf (None Seen)
[2020-11-26 05:29] LABS: WBC,Urine 50-100 per hpf (0-3)
[2020-11-26] MEDS: Insulin LISPRO 300 UNITS/3 ML VIAL SUBQ SCH ×4 (08:15→20:05)
[2020-11-26] MEDS: *HR* SitaGLIPtin 25 MG TABLET PO SCH (08:23)
[2020-11-26] MEDS: levoFLOXacin 750 MG TABLET PO SCH (08:23)
[2020-11-26] MEDS: *HR* Digoxin 0.125 MG TABLET PO SCH (08:24)
[2020-11-26] MEDS: *HR* Ticagrelor 90 MG TABLET PO SCH ×2 (08:24→19:57)
[2020-11-26] MEDS: Piperacillin/Tazobactam 3.375 GM in 0.9 % Sodium Chloride Mini Bag 100 ML IVPB SCH ×3 (08:24→23:52)
[2020-11-26] MEDS: Lactobacillus 1 EACH CAP.SPRINK PO SCH ×2 (08:24→19:57)
[2020-11-26] MEDS: Furosemide 40 MG TABLET PO SCH (08:24)
[2020-11-26] MEDS: Gabapentin 100 MG CAPSULE PO SCH ×3 (08:24→19:57)
[2020-11-26] MEDS: Aspirin Enteric Coated 81 MG Tablet PO SCH (08:24)
[2020-11-26] MEDS: *HR* Amiodarone 200 MG TABLET PO SCH (08:24)
[2020-11-26] MEDS: Spironolactone 25 MG TABLET PO SCH (08:24)
[2020-11-26] MEDS: Apixaban 5 MG TABLET PO SCH ×2 (08:24→19:57)
[2020-11-26] MEDS: (Empagliflozin [Jardiance] 10 MG Tablet) PO SCH (08:25)
[2020-11-26] MEDS: TRADJENTA 5 MG PO SCH (08:26)
[2020-11-26] MEDS: Nystatin POWDER 30 GM BOTTLE TP SCH ×2 (08:35→20:02)
[2020-11-26] MEDS: Furosemide 20 MG TABLET PO SCH (15:00)
[2020-11-27] MEDS: Insulin LISPRO 300 UNITS/3 ML VIAL SUBQ SCH ×4 (08:38→20:06)
[2020-11-27] MEDS: levoFLOXacin 750 MG TABLET PO SCH (08:47)
[2020-11-27] MEDS: *HR* Ticagrelor 90 MG TABLET PO SCH ×2 (08:48→20:05)
[2020-11-27] MEDS: *HR* Amiodarone 200 MG TABLET PO SCH (08:48)
[2020-11-27] MEDS: Lactobacillus 1 EACH CAP.SPRINK PO SCH ×2 (08:48→20:05)
[2020-11-27] MEDS: Furosemide 40 MG TABLET PO SCH (08:48)
[2020-11-27] MEDS: Gabapentin 100 MG CAPSULE PO SCH ×3 (08:48→20:05)
[2020-11-27] MEDS: Spironolactone 25 MG TABLET PO SCH (08:48)
[2020-11-27] MEDS: Aspirin Enteric Coated 81 MG Tablet PO SCH (08:48)
[2020-11-27] MEDS: *HR* SitaGLIPtin 25 MG TABLET PO SCH (08:48)
[2020-11-27] MEDS: *HR* Digoxin 0.125 MG TABLET PO SCH (08:48)
[2020-11-27] MEDS: Apixaban 5 MG TABLET PO SCH ×2 (08:48→20:05)
[2020-11-27] MEDS: (Empagliflozin [Jardiance] 10 MG Tablet) PO SCH (08:49)
[2020-11-27] MEDS: Piperacillin/Tazobactam 3.375 GM in 0.9 % Sodium Chloride Mini Bag 100 ML IVPB SCH ×2 (08:49→17:08)
[2020-11-27] MEDS: Nystatin POWDER 30 GM BOTTLE TP SCH ×2 (08:50→20:16)
[2020-11-27] MEDS: TRADJENTA 5 MG PO SCH (08:50)
[2020-11-27] MEDS: *HR* HYDROcodone/Acet 5/325 mg TABLET PO PRN (08:55)
[2020-11-27 10:11] LABS: BUN/Creatinine Ratio 14 (6-26); Blood Urea Nitrogen 14 mg/dL (8-23); eGFR For African Americans > 60 (> 60); eGFR For Non-African Americans > 60 (> 60)
[2020-11-27] MEDS ORDERED: metroNIDAZOLE 500 MG TABLET PO ONE (10:40)
[2020-11-27] MEDS: Furosemide 20 MG TABLET PO SCH (11:37)
[2020-11-27] MEDS: Melatonin 3 MG TABLET PO PRN (20:05)
[2020-11-27] MEDS: *HR* HYDROcodone/Acet 10/325 mg TABLET PO PRN (20:13)
[2020-11-28] MEDS: Piperacillin/Tazobactam 3.375 GM in 0.9 % Sodium Chloride Mini Bag 100 ML IVPB SCH ×2 (00:33→09:18)
[2020-11-28 07:19] LABS: BUN/Creatinine Ratio 11 (6-26); Blood Urea Nitrogen 13 mg/dL (8-23); eGFR For African Americans > 60 (> 60); eGFR For Non-African Americans 60 (> 60)
[2020-11-28] MEDS: Insulin LISPRO 300 UNITS/3 ML VIAL SUBQ SCH ×4 (09:07→21:54)
[2020-11-28] MEDS: *HR* SitaGLIPtin 25 MG TABLET PO SCH (09:14)
[2020-11-28] MEDS: *HR* Amiodarone 200 MG TABLET PO SCH (09:14)
[2020-11-28] MEDS: Spironolactone 25 MG TABLET PO SCH (09:15)
[2020-11-28] MEDS: *HR* Ticagrelor 90 MG TABLET PO SCH ×2 (09:15→21:53)
[2020-11-28] MEDS: *HR* Digoxin 0.125 MG TABLET PO SCH (09:16)
[2020-11-28] MEDS: Furosemide 40 MG TABLET PO SCH (09:17)
[2020-11-28] MEDS: Gabapentin 100 MG CAPSULE PO SCH ×3 (09:17→21:53)
[2020-11-28] MEDS: Apixaban 5 MG TABLET PO SCH ×2 (09:17→21:53)
[2020-11-28] MEDS: Aspirin Enteric Coated 81 MG Tablet PO SCH (09:17)
[2020-11-28] MEDS: Lactobacillus 1 EACH CAP.SPRINK PO SCH ×2 (09:18→21:53)
[2020-11-28] MEDS: (Empagliflozin [Jardiance] 10 MG Tablet) PO SCH (10:27)
[2020-11-28] MEDS: TRADJENTA 5 MG PO SCH (10:27)
[2020-11-28] MEDS: Furosemide 20 MG TABLET PO SCH (12:55)
[2020-11-28] MEDS: levoFLOXacin 500 MG TABLET PO SCH (13:14)
[2020-11-28] MEDS: Nystatin POWDER 30 GM BOTTLE TP SCH ×2 (21:28→21:54)
[2020-11-28] MEDS: Melatonin 3 MG TABLET PO PRN (21:53)
[2020-11-29 07:28] LABS: BUN/Creatinine Ratio 12 (6-26); Blood Urea Nitrogen 12 mg/dL (8-23); eGFR For African Americans > 60 (> 60); eGFR For Non-African Americans > 60 (> 60)
[2020-11-29] MEDS: Gabapentin 100 MG CAPSULE PO SCH ×3 (07:35→20:48)
[2020-11-29] MEDS: Apixaban 5 MG TABLET PO SCH ×2 (07:35→20:49)
[2020-11-29] MEDS: levoFLOXacin 500 MG TABLET PO SCH (07:36)
[2020-11-29] MEDS: Spironolactone 25 MG TABLET PO SCH (07:36)
[2020-11-29] MEDS: *HR* SitaGLIPtin 25 MG TABLET PO SCH (07:36)
[2020-11-29] MEDS: *HR* Digoxin 0.125 MG TABLET PO SCH (07:37)
[2020-11-29] MEDS: Furosemide 40 MG TABLET PO SCH (07:37)
[2020-11-29] MEDS: *HR* Ticagrelor 90 MG TABLET PO SCH ×2 (07:38→20:49)
[2020-11-29] MEDS: Aspirin Enteric Coated 81 MG Tablet PO SCH (07:38)
[2020-11-29] MEDS: *HR* Amiodarone 200 MG TABLET PO SCH (07:38)
[2020-11-29] MEDS: Lactobacillus 1 EACH CAP.SPRINK PO SCH ×2 (07:39→20:49)
[2020-11-29] MEDS: Nystatin POWDER 30 GM BOTTLE TP SCH ×2 (07:39→20:50)
[2020-11-29] MEDS: Insulin LISPRO 300 UNITS/3 ML VIAL SUBQ SCH ×4 (07:40→20:49)
[2020-11-29] MEDS: *HR* HYDROcodone/Acet 10/325 mg TABLET PO PRN (12:15)
[2020-11-29] MEDS: Furosemide 20 MG TABLET PO SCH (12:16)
[2020-11-29] MEDS: (Empagliflozin [Jardiance] 10 MG Tablet) PO SCH (12:17)
[2020-11-29] MEDS: TRADJENTA 5 MG PO SCH (12:17)
[2020-11-29] MEDS: Melatonin 3 MG TABLET PO PRN (20:48)
[2020-11-30 07:37] LABS: BUN/Creatinine Ratio 11 (6-26); Blood Urea Nitrogen 14 mg/dL (8-23); eGFR For African Americans > 60 (> 60); eGFR For Non-African Americans 54 (> 60)
[2020-11-30] MEDS: Insulin LISPRO 300 UNITS/3 ML VIAL SUBQ SCH ×4 (08:00→19:50)
[2020-11-30] MEDS: Lactobacillus 1 EACH CAP.SPRINK PO SCH ×2 (08:24→21:33)
[2020-11-30] MEDS: *HR* Ticagrelor 90 MG TABLET PO SCH ×2 (08:24→21:33)
[2020-11-30] MEDS: Apixaban 5 MG TABLET PO SCH ×2 (08:24→21:33)
[2020-11-30] MEDS: Gabapentin 100 MG CAPSULE PO SCH ×3 (08:24→21:33)
[2020-11-30] MEDS: Aspirin Enteric Coated 81 MG Tablet PO SCH (08:24)
[2020-11-30] MEDS: *HR* SitaGLIPtin 25 MG TABLET PO SCH (08:24)
[2020-11-30] MEDS: Nystatin POWDER 30 GM BOTTLE TP SCH ×2 (08:25→21:34)
[2020-11-30] MEDS: *HR* HYDROcodone/Acet 10/325 mg TABLET PO PRN ×2 (08:32→21:33)
[2020-11-30] MEDS: Spironolactone 25 MG TABLET PO SCH (08:33)
[2020-11-30] MEDS: *HR* Digoxin 0.125 MG TABLET PO SCH (08:34)
[2020-11-30] MEDS: Furosemide 40 MG TABLET PO SCH (08:34)
[2020-11-30] MEDS: (Empagliflozin [Jardiance] 10 MG Tablet) PO SCH (08:34)
[2020-11-30] MEDS: *HR* Amiodarone 200 MG TABLET PO SCH (08:34)
[2020-11-30] MEDS: TRADJENTA 5 MG PO SCH (08:35)
[2020-11-30] MEDS: Furosemide 20 MG TABLET PO SCH (12:30)
[2020-11-30] MEDS: *HR* HYDROcodone/Acet 5/325 mg TABLET PO PRN (12:31)
[2020-11-30] MEDS: Melatonin 3 MG TABLET PO PRN (21:33)
[2020-12-01] MEDS: *HR* HYDROcodone/Acet 10/325 mg TABLET PO PRN ×2 (03:23→21:48)
[2020-12-01 06:35] LABS: Basophils # 0.1 K/mcL (0.0-0.2); Basophils % 0.8 %; Eosinophils # 0.2 K/mcL (0.0-0.6); Eosinophils % 1.8 %; Hematocrit 31.4 % (37.5-50.1); Hemoglobin 9.6 g/dL (12.9-16.9); Immature Granulocytes % 2.6 % (0-4); Lymphocytes # 2.2 K/mcL (0.6-4.6); Mean Corpuscular HGB Conc 30.6 g/dL (31.6-35.5); Mean Corpuscular Hemoglobin 27.8 pg (28.0-33.3); Mean Platelet Volume 8.7 fL (9.4-12.4); Monocytes % 8.3 %; Platelet Count 409 K/mcL (140-400); Red Blood Count 3.45 M/mcL (4.19-5.50); Red Cell Distribution Width 18.9 % (11.5-14.5); Segmented Neutrophils % 67.5 %; White Blood Count 11.6 K/mcL (4.3-11.1)
[2020-12-01 06:49] LABS: Neutrophils # 7.8 K/mcL (1.6-8.9)
[2020-12-01 07:03] LABS: BUN/Creatinine Ratio 15 (6-26); Blood Urea Nitrogen 16 mg/dL (8-23); Calcium 8.8 mg/dL (8.6-10.3); Carbon Dioxide 25 mEq/L (23-29); Chloride 100 mEq/L (98-107); Glucose 97 mg/dL (70-105); Osmolality,Calculated 275 (280-300); Potassium 3.7 mEq/L (3.5-5.1); Sodium 132 mEq/L (136-145); eGFR For African Americans > 60 (> 60); eGFR For Non-African Americans > 60 (> 60)
[2020-12-01] MEDS: Aspirin Enteric Coated 81 MG Tablet PO SCH (08:44)
[2020-12-01] MEDS: *HR* SitaGLIPtin 25 MG TABLET PO SCH (08:44)
[2020-12-01] MEDS: *HR* Ticagrelor 90 MG TABLET PO SCH ×2 (08:45→21:47)
[2020-12-01] MEDS: Insulin LISPRO 300 UNITS/3 ML VIAL SUBQ SCH ×4 (08:45→21:34)
[2020-12-01] MEDS: Apixaban 5 MG TABLET PO SCH ×2 (08:45→21:47)
[2020-12-01] MEDS: *HR* Amiodarone 200 MG TABLET PO SCH (08:45)
[2020-12-01] MEDS: Lactobacillus 1 EACH CAP.SPRINK PO SCH ×2 (08:45→21:48)
[2020-12-01] MEDS: *HR* Digoxin 0.125 MG TABLET PO SCH (08:45)
[2020-12-01] MEDS: Gabapentin 100 MG CAPSULE PO SCH ×3 (08:45→21:47)
[2020-12-01] MEDS: Spironolactone 25 MG TABLET PO SCH (08:46)
[2020-12-01] MEDS: Furosemide 40 MG TABLET PO SCH (08:47)
[2020-12-01] MEDS: TRADJENTA 5 MG PO SCH (08:48)
[2020-12-01] MEDS: (Empagliflozin [Jardiance] 10 MG Tablet) PO SCH (08:48)
[2020-12-01] MEDS: Nystatin POWDER 30 GM BOTTLE TP SCH ×2 (08:48→21:48)
[2020-12-01] MEDS: Furosemide 20 MG TABLET PO SCH (12:10)
[2020-12-01] MEDS: Melatonin 3 MG TABLET PO PRN (21:47)
[2020-12-02] MEDS: Gabapentin 100 MG CAPSULE PO SCH ×3 (07:51→21:24)
[2020-12-02] MEDS: *HR* SitaGLIPtin 25 MG TABLET PO SCH (07:51)
[2020-12-02] MEDS: Lactobacillus 1 EACH CAP.SPRINK PO SCH ×2 (07:51→21:24)
[2020-12-02] MEDS: Apixaban 5 MG TABLET PO SCH ×2 (07:51→21:24)
[2020-12-02] MEDS: Aspirin Enteric Coated 81 MG Tablet PO SCH (07:51)
[2020-12-02] MEDS: Furosemide 40 MG TABLET PO SCH (07:52)
[2020-12-02] MEDS: *HR* Digoxin 0.125 MG TABLET PO SCH (07:52)
[2020-12-02] MEDS: *HR* Ticagrelor 90 MG TABLET PO SCH ×2 (07:52→21:24)
[2020-12-02] MEDS: Spironolactone 25 MG TABLET PO SCH (07:52)
[2020-12-02] MEDS: Insulin LISPRO 300 UNITS/3 ML VIAL SUBQ SCH ×4 (07:52→21:26)
[2020-12-02] MEDS: *HR* Amiodarone 200 MG TABLET PO SCH (07:52)
[2020-12-02] MEDS: TRADJENTA 5 MG PO SCH (07:53)
[2020-12-02] MEDS: Nystatin POWDER 30 GM BOTTLE TP SCH ×2 (07:53→21:25)
[2020-12-02] MEDS: (Empagliflozin [Jardiance] 10 MG Tablet) PO SCH (07:53)
[2020-12-02] MEDS: Furosemide 20 MG TABLET PO SCH (12:23)
[2020-12-02] MEDS: *HR* HYDROcodone/Acet 10/325 mg TABLET PO PRN (18:19)
[2020-12-02] MEDS: Melatonin 3 MG TABLET PO PRN (21:24)
[2020-12-03] MEDS: Insulin LISPRO 300 UNITS/3 ML VIAL SUBQ SCH ×4 (07:37→20:39)
[2020-12-03] MEDS: Lactobacillus 1 EACH CAP.SPRINK PO SCH ×2 (07:38→20:38)
[2020-12-03] MEDS: *HR* Digoxin 0.125 MG TABLET PO SCH (07:38)
[2020-12-03] MEDS: *HR* Amiodarone 200 MG TABLET PO SCH (07:38)
[2020-12-03] MEDS: Aspirin Enteric Coated 81 MG Tablet PO SCH (07:38)
[2020-12-03] MEDS: Spironolactone 25 MG TABLET PO SCH (07:38)
[2020-12-03] MEDS: *HR* SitaGLIPtin 25 MG TABLET PO SCH (07:38)
[2020-12-03] MEDS: Apixaban 5 MG TABLET PO SCH ×2 (07:38→20:38)
[2020-12-03] MEDS: Furosemide 40 MG TABLET PO SCH (07:38)
[2020-12-03] MEDS: Gabapentin 100 MG CAPSULE PO SCH ×3 (07:39→20:38)
[2020-12-03] MEDS: Nystatin POWDER 30 GM BOTTLE TP SCH ×2 (07:39→20:39)
[2020-12-03] MEDS: *HR* Ticagrelor 90 MG TABLET PO SCH ×2 (07:39→20:38)
[2020-12-03] MEDS: (Empagliflozin [Jardiance] 10 MG Tablet) PO SCH (07:39)
[2020-12-03] MEDS: TRADJENTA 5 MG PO SCH (07:40)
[2020-12-03] MEDS: Furosemide 20 MG TABLET PO SCH (11:24)
[2020-12-04] MEDS: Insulin LISPRO 300 UNITS/3 ML VIAL SUBQ SCH ×4 (10:00→21:27)
[2020-12-04] MEDS: *HR* SitaGLIPtin 25 MG TABLET PO SCH (10:01)
[2020-12-04] MEDS: Apixaban 5 MG TABLET PO SCH ×2 (10:01→21:31)
[2020-12-04] MEDS: *HR* Digoxin 0.125 MG TABLET PO SCH (10:01)
[2020-12-04] MEDS: Aspirin Enteric Coated 81 MG Tablet PO SCH (10:01)
[2020-12-04] MEDS: *HR* Amiodarone 200 MG TABLET PO SCH (10:01)
[2020-12-04] MEDS: *HR* Ticagrelor 90 MG TABLET PO SCH ×2 (10:01→21:31)
[2020-12-04] MEDS: Furosemide 40 MG TABLET PO SCH (10:01)
[2020-12-04] MEDS: Lactobacillus 1 EACH CAP.SPRINK PO SCH ×2 (10:01→21:31)
[2020-12-04] MEDS: Spironolactone 25 MG TABLET PO SCH (10:01)
[2020-12-04] MEDS: Gabapentin 100 MG CAPSULE PO SCH ×3 (10:01→21:31)
[2020-12-04] MEDS: Nystatin POWDER 30 GM BOTTLE TP SCH ×2 (10:02→21:32)
[2020-12-04] MEDS: (Empagliflozin [Jardiance] 10 MG Tablet) PO SCH (10:02)
[2020-12-04] MEDS: TRADJENTA 5 MG PO SCH (10:02)
[2020-12-04] MEDS: Furosemide 20 MG TABLET PO SCH (13:00)
[2020-12-05 07:42] LABS: Basophils # 0.1 K/mcL (0.0-0.2); Basophils % 0.5 %; Eosinophils # 0.2 K/mcL (0.0-0.6); Eosinophils % 1.6 %; Hemoglobin 9.5 g/dL (12.9-16.9); Immature Granulocytes % 1.1 % (0-4); Lymphocytes # 1.5 K/mcL (0.6-4.6); Lymphocytes % 14.2 %; Mean Corpuscular HGB Conc 30.6 g/dL (31.6-35.5); Mean Corpuscular Hemoglobin 27.9 pg (28.0-33.3); Mean Corpuscular Volume 91.2 fL (83.0-100.0); Monocytes # 0.8 K/mcL (0.0-1.3); Monocytes % 8.2 %; Neutrophils # 7.6 K/mcL (1.6-8.9); Platelet Count 341 K/mcL (140-400); Red Cell Distribution Width 19.9 % (11.5-14.5); Segmented Neutrophils % 74.4 %; White Blood Count 10.2 K/mcL (4.3-11.1)
[2020-12-05 08:01] LABS: BUN/Creatinine Ratio 15 (6-26); Blood Urea Nitrogen 17 mg/dL (8-23); Calcium 8.4 mg/dL (8.6-10.3); Carbon Dioxide 25 mEq/L (23-29); Chloride 101 mEq/L (98-107); Glucose 110 mg/dL (70-105); Osmolality,Calculated 280 (280-300); Potassium 3.9 mEq/L (3.5-5.1); Sodium 134 mEq/L (136-145); eGFR For African Americans > 60 (> 60); eGFR For Non-African Americans > 60 (> 60)
[2020-12-05] MEDS: Insulin LISPRO 300 UNITS/3 ML VIAL SUBQ SCH ×4 (08:01→20:04)
[2020-12-05] MEDS: *HR* SitaGLIPtin 25 MG TABLET PO SCH (08:02)
[2020-12-05] MEDS: *HR* Amiodarone 200 MG TABLET PO SCH (08:02)
[2020-12-05] MEDS: *HR* Ticagrelor 90 MG TABLET PO SCH ×2 (08:02→20:04)
[2020-12-05] MEDS: Furosemide 40 MG TABLET PO SCH (08:02)
[2020-12-05] MEDS: *HR* Digoxin 0.125 MG TABLET PO SCH (08:02)
[2020-12-05] MEDS: (Empagliflozin [Jardiance] 10 MG Tablet) PO SCH (08:02)
[2020-12-05] MEDS: Lactobacillus 1 EACH CAP.SPRINK PO SCH ×2 (08:02→20:04)
[2020-12-05] MEDS: Spironolactone 25 MG TABLET PO SCH (08:02)
[2020-12-05] MEDS: Apixaban 5 MG TABLET PO SCH ×2 (08:02→20:04)
[2020-12-05] MEDS: Aspirin Enteric Coated 81 MG Tablet PO SCH (08:02)
[2020-12-05] MEDS: TRADJENTA 5 MG PO SCH (08:02)
[2020-12-05] MEDS: Gabapentin 100 MG CAPSULE PO SCH ×3 (08:02→20:03)
[2020-12-05] MEDS: Nystatin POWDER 30 GM BOTTLE TP SCH ×2 (08:03→20:05)
[2020-12-05] MEDS: Furosemide 20 MG TABLET PO SCH (12:49)
[2020-12-05] MEDS: Melatonin 3 MG TABLET PO PRN (20:03)
[2020-12-06] MEDS: Insulin LISPRO 300 UNITS/3 ML VIAL SUBQ SCH ×4 (07:12→20:15)
[2020-12-06] MEDS: Aspirin Enteric Coated 81 MG Tablet PO SCH (10:06)
[2020-12-06] MEDS: *HR* Ticagrelor 90 MG TABLET PO SCH ×2 (10:06→20:14)
[2020-12-06] MEDS: *HR* Amiodarone 200 MG TABLET PO SCH (10:06)
[2020-12-06] MEDS: Gabapentin 100 MG CAPSULE PO SCH ×3 (10:06→20:15)
[2020-12-06] MEDS: *HR* Digoxin 0.125 MG TABLET PO SCH (10:06)
[2020-12-06] MEDS: Spironolactone 25 MG TABLET PO SCH (10:06)
[2020-12-06] MEDS: *HR* SitaGLIPtin 25 MG TABLET PO SCH (10:06)
[2020-12-06] MEDS: Lactobacillus 1 EACH CAP.SPRINK PO SCH ×2 (10:06→20:14)
[2020-12-06] MEDS: Furosemide 40 MG TABLET PO SCH (10:06)
[2020-12-06] MEDS: Apixaban 5 MG TABLET PO SCH ×2 (10:07→20:14)
[2020-12-06] MEDS: TRADJENTA 5 MG PO SCH (10:07)
[2020-12-06] MEDS: (Empagliflozin [Jardiance] 10 MG Tablet) PO SCH (10:07)
[2020-12-06] MEDS: Nystatin POWDER 30 GM BOTTLE TP SCH ×2 (10:07→20:17)
[2020-12-06] MEDS: Furosemide 20 MG TABLET PO SCH (15:42)
[2020-12-06] MEDS: Melatonin 3 MG TABLET PO PRN (20:14)
[2020-12-06] MEDS: *HR* HYDROcodone/Acet 5/325 mg TABLET PO PRN (20:14)
[2020-12-07] MEDS: Insulin LISPRO 300 UNITS/3 ML VIAL SUBQ SCH ×4 (07:48→20:29)
[2020-12-07] MEDS: Furosemide 40 MG TABLET PO SCH (10:13)
[2020-12-07] MEDS: *HR* SitaGLIPtin 25 MG TABLET PO SCH (10:13)
[2020-12-07] MEDS: Gabapentin 100 MG CAPSULE PO SCH ×3 (10:14→20:28)
[2020-12-07] MEDS: Aspirin Enteric Coated 81 MG Tablet PO SCH (10:14)
[2020-12-07] MEDS: *HR* Digoxin 0.125 MG TABLET PO SCH (10:14)
[2020-12-07] MEDS: *HR* Ticagrelor 90 MG TABLET PO SCH ×2 (10:14→20:28)
[2020-12-07] MEDS: Lactobacillus 1 EACH CAP.SPRINK PO SCH ×2 (10:14→20:28)
[2020-12-07] MEDS: *HR* Amiodarone 200 MG TABLET PO SCH (10:14)
[2020-12-07] MEDS: Apixaban 5 MG TABLET PO SCH ×2 (10:14→20:28)
[2020-12-07] MEDS: Spironolactone 25 MG TABLET PO SCH (10:14)
[2020-12-07] MEDS: TRADJENTA 5 MG PO SCH (11:16)
[2020-12-07] MEDS: Nystatin POWDER 30 GM BOTTLE TP SCH ×2 (11:16→20:28)
[2020-12-07] MEDS: (Empagliflozin [Jardiance] 10 MG Tablet) PO SCH (11:16)
[2020-12-07] MEDS: Furosemide 20 MG TABLET PO SCH (11:45)
[2020-12-07] MEDS: Melatonin 3 MG TABLET PO PRN (20:28)
[2020-12-08] MEDS: Insulin LISPRO 300 UNITS/3 ML VIAL SUBQ SCH ×4 (07:30→21:20)
[2020-12-08] MEDS: Apixaban 5 MG TABLET PO SCH ×2 (08:11→21:20)
[2020-12-08] MEDS: Aspirin Enteric Coated 81 MG Tablet PO SCH (08:11)
[2020-12-08] MEDS: *HR* SitaGLIPtin 25 MG TABLET PO SCH (08:11)
[2020-12-08] MEDS: Furosemide 40 MG TABLET PO SCH (08:11)
[2020-12-08] MEDS: Spironolactone 25 MG TABLET PO SCH (08:11)
[2020-12-08] MEDS: Gabapentin 100 MG CAPSULE PO SCH ×3 (08:11→21:20)
[2020-12-08] MEDS: *HR* Digoxin 0.125 MG TABLET PO SCH (08:11)
[2020-12-08] MEDS: *HR* Ticagrelor 90 MG TABLET PO SCH ×2 (08:11→21:20)
[2020-12-08] MEDS: *HR* Amiodarone 200 MG TABLET PO SCH (08:11)
[2020-12-08] MEDS: Lactobacillus 1 EACH CAP.SPRINK PO SCH ×2 (08:11→21:20)
[2020-12-08] MEDS: TRADJENTA 5 MG PO SCH (08:12)
[2020-12-08] MEDS: (Empagliflozin [Jardiance] 10 MG Tablet) PO SCH (08:12)
[2020-12-08] MEDS: Nystatin POWDER 30 GM BOTTLE TP SCH ×2 (08:12→21:21)
[2020-12-08] MEDS: Furosemide 20 MG TABLET PO SCH (11:47)
[2020-12-08] MEDS: Melatonin 3 MG TABLET PO PRN (21:20)
[2020-12-08] MEDS: *HR* HYDROcodone/Acet 10/325 mg TABLET PO PRN (21:20)
[2020-12-09] MEDS: Insulin LISPRO 300 UNITS/3 ML VIAL SUBQ SCH ×2 (07:44→11:16)
[2020-12-09] MEDS: Spironolactone 25 MG TABLET PO SCH (08:28)
[2020-12-09] MEDS: *HR* Amiodarone 200 MG TABLET PO SCH (08:28)
[2020-12-09] MEDS: *HR* SitaGLIPtin 25 MG TABLET PO SCH (08:28)
[2020-12-09] MEDS: Lactobacillus 1 EACH CAP.SPRINK PO SCH (08:28)
[2020-12-09] MEDS: Nystatin POWDER 30 GM BOTTLE TP SCH (08:29)
[2020-12-09] MEDS: *HR* Ticagrelor 90 MG TABLET PO SCH (08:29)
[2020-12-09] MEDS: Aspirin Enteric Coated 81 MG Tablet PO SCH (08:29)
[2020-12-09] MEDS: *HR* Digoxin 0.125 MG TABLET PO SCH (08:29)
[2020-12-09] MEDS: Apixaban 5 MG TABLET PO SCH (08:29)
[2020-12-09] MEDS: Furosemide 40 MG TABLET PO SCH (08:29)
[2020-12-09] MEDS: Gabapentin 100 MG CAPSULE PO SCH (08:29)
[2020-12-09] MEDS: (Empagliflozin [Jardiance] 10 MG Tablet) PO SCH (08:30)
[2020-12-09] MEDS: TRADJENTA 5 MG PO SCH (08:30)
[2020-12-09 08:33] VITALS: BP 119/66
[2020-12-09] MEDS: Furosemide 20 MG TABLET PO SCH (12:32)
== END 2020-12-09 14:55 | disposition home health service (06) | DRG 949 ==
LOC: INPPIK 21:00
PROVIDERS: ADMIT Family Medicine; ATTEND Family Medicine

== ENCOUNTER 2021-05-28 16:40 | Inpatient (IN) ==
[2021-05-28 17:49] LABS: Basophils % 0.1 %; Eosinophils # 0.2 K/mcL (0.0-0.6); Eosinophils % 1.5 %; Hematocrit 47.1 % (37.5-50.1); Hemoglobin 15.1 g/dL (12.9-16.9); Immature Granulocytes % 12.5 % (0-4); Lymphocytes # 0.5 K/mcL (0.6-4.6); Lymphocytes % 3.3 %; Mean Corpuscular HGB Conc 32.1 g/dL (31.6-35.5); Mean Corpuscular Volume 90.6 fL (83.0-100.0); Monocytes # 0.2 K/mcL (0.0-1.3); Monocytes % 1.2 %; Platelet Count 417 K/mcL (140-400); Red Cell Distribution Width 16.9 % (11.5-14.5); Segmented Neutrophils % 81.4 %; White Blood Count 13.7 K/mcL (4.3-11.1)
[2021-05-28 17:51] LABS: Neutrophils # 11.2 K/mcL (1.6-8.9)
[2021-05-28 18:07] LABS: Platelet Estimate Normal (Normal)
[2021-05-28 18:09] LABS: Alanine Aminotransferase 53 Units/L (7-52); Albumin/Globulin Ratio 0.9 (1.1-2.2); Alkaline Phosphatase 109 Units/L (34-104); Aspartate Amino Transferase 38 Units/L (13-39); BUN/Creatinine Ratio 22 (6-26); Bilirubin,Total 1.5 mg/dL (0.3-1.0); Blood Urea Nitrogen 30 mg/dL (8-23); Carbon Dioxide 23 mEq/L (23-29); Chloride 101 mEq/L (98-107); Globulin 3.4 g/dL (2.4-3.5); Glucose 282 mg/dL (70-105); Osmolality,Calculated 292 (280-300); Potassium 4.7 mEq/L (3.5-5.1); Sodium 133 mEq/L (136-145); Total Protein 6.4 g/dL (6.4-8.9); eGFR For African Americans > 60 (> 60); eGFR For Non-African Americans 52 (> 60)
[2021-05-28] MEDS ORDERED: 0.9 % Sodium Chloride 1,000 ML IV ONE (18:11)
[2021-05-28] MEDS ORDERED: Piperacillin/Tazobactam 3.375 GM in 0.9 % Sodium Chloride Mini Bag 100 ML IVPB ONE (18:11)
[2021-05-28] MEDS ORDERED: Ondansetron ODT 4 MG TAB.RAPDIS SL PRN (19:21)
[2021-05-28] MEDS ORDERED: 0.9 % Sodium Chloride 1,000 ML IVC SCH (19:30)
[2021-05-28] MEDS ORDERED: Insulin LISPRO 300 UNITS/3 ML VIAL SUBQ SCH ×2 (21:00→22:00)
[2021-05-29] MEDS ORDERED: Naloxone 0.4 MG/ML INJ IVP PRN (03:54)
[2021-05-29] MEDS ORDERED: 0.9 % Sodium Chloride 1,000 ML IVC SCH ×2 (03:54)
[2021-05-29] MEDS ORDERED: Ondansetron ODT 4 MG TAB.RAPDIS SL PRN (03:54)
[2021-05-29] MEDS ORDERED: *HR* Ticagrelor 90 MG TABLET PO SCH (03:54)
[2021-05-29] MEDS ORDERED: Ipratropium 1 PUFF INHALER IH SCH (04:00)
[2021-05-29] MEDS ORDERED: Melatonin 3 MG TABLET PO PRN (04:29)
[2021-05-29] MEDS ORDERED: Apixaban 5 MG TABLET PO SCH (04:30)
[2021-05-29] MEDS: Ipratropium 1 PUFF INHALER IH SCH ×4 (04:48→22:33)
[2021-05-29 07:40] LABS: Hematocrit 40.9 % (37.5-50.1); Hemoglobin 13.1 g/dL (12.9-16.9); Mean Corpuscular Volume 90.5 fL (83.0-100.0); Platelet Count 375 K/mcL (140-400); Red Blood Count 4.52 M/mcL (4.19-5.50); White Blood Count 16.7 K/mcL (4.3-11.1)
[2021-05-29] MEDS ORDERED: Piperacillin/Tazobactam 3.375 GM in 0.9 % Sodium Chloride Mini Bag 100 ML IVPB SCH ×2 (08:00)
[2021-05-29 08:10] LABS: Anisocytosis 1+ (Not Present); Lymphocytes # 1.3 K/mcL (0.6-4.6); Monocytes # 0.7 K/mcL (0.0-1.3); Neutrophils # 14.7 K/mcL (1.6-8.9); Platelet Estimate Normal (Normal)
[2021-05-29] MEDS: Insulin LISPRO 300 UNITS/3 ML VIAL SUBQ SCH ×4 (08:10→20:49)
[2021-05-29 08:19] LABS: BUN/Creatinine Ratio 21 (6-26); Blood Urea Nitrogen 26 mg/dL (8-23); Calcium 7.4 mg/dL (8.6-10.3); Carbon Dioxide 22 mEq/L (23-29); Chloride 108 mEq/L (98-107); Glucose 114 mg/dL (70-105); Osmolality,Calculated 290 (280-300); Potassium 4.1 mEq/L (3.5-5.1); Sodium 137 mEq/L (136-145); eGFR For African Americans > 60 (> 60); eGFR For Non-African Americans 60 (> 60)
[2021-05-29] MEDS ORDERED: Nystatin POWDER 30 GM BOTTLE TP SCH (09:00)
[2021-05-29] MEDS ORDERED: Chlorhexidine Rinse 15 ML MOUTHWASH MM SCH (09:00)
[2021-05-29] MEDS ORDERED: Multivit/Ca/Min/Fe/FA 1 TAB TABLET PO SCH (09:00)
[2021-05-29 09:44] LABS: Adenovirus Not Detected (Not Detect); Bordetella Pertussis Not Detected (Not Detect); Chlamydophila pneumoniae Not Detected (Not Detect); Coronavirus 229E Not Detected (Not Detect); Coronavirus HKU1 Not Detected (Not Detect); Coronavirus NL63 Not Detected (Not Detect); Coronavirus OC43 Not Detected (Not Detect); Human Metapneumovirus DETECTED (Not Detect); Human Rhinovirus/Enterovirus Not Detected (Not Detect); Influenza A Subtype 2009 H1 Not Detected (Not Detect); Influenza B Not Detected (Not Detect); Mycoplasma pneumoniae Not Detected (Not Detect); Parainfluenza Virus 1 Not Detected (Not Detect); Parainfluenza Virus 2 Not Detected (Not Detect); Parainfluenza Virus 3 Not Detected (Not Detect); Parainfluenza Virus 4 Not Detected (Not Detect); Respiratory Syncytial Virus Not Detected (Not Detect); SARS-CoV-2 Not Detected (Not Detect)
[2021-05-29] MEDS: *HR* SitaGLIPtin 25 MG TABLET PO SCH (09:59)
[2021-05-29] MEDS: Furosemide 40 MG TABLET PO SCH (09:59)
[2021-05-29] MEDS ORDERED: Budesonide/Formoterol 160/4.5 1 PUFF INH IH SCH (10:00)
[2021-05-29] MEDS: Apixaban 5 MG TABLET PO SCH ×2 (10:00→20:49)
[2021-05-29] MEDS: Aspirin Enteric Coated 81 MG Tablet PO SCH (10:00)
[2021-05-29] MEDS: *HR* Digoxin 0.125 MG TABLET PO SCH (10:00)
[2021-05-29] MEDS: *HR* Ticagrelor 90 MG TABLET PO SCH ×2 (10:01→20:49)
[2021-05-29] MEDS: Multivit/Ca/Min/Fe/FA 1 TAB TABLET PO SCH (10:01)
[2021-05-29] MEDS: DilTIAZem CD (24hr) 120 MG CAP.ER.24H PO SCH (10:01)
[2021-05-29] MEDS: *HR* Amiodarone 200 MG TABLET PO SCH (10:01)
[2021-05-29] MEDS: Spironolactone 25 MG TABLET PO SCH (10:01)
[2021-05-29] MEDS: Chlorhexidine Rinse 15 ML MOUTHWASH MM SCH ×2 (10:02→20:49)
[2021-05-29] MEDS: EMPAGLIFLOZIN 10 MG PO SCH (10:03)
[2021-05-29] MEDS: Nystatin POWDER 30 GM BOTTLE TP SCH ×3 (10:27→20:50)
[2021-05-29] MEDS: Budesonide/Formoterol 160/4.5 1 PUFF INH IH SCH ×2 (10:45→22:33)
[2021-05-29] MEDS ORDERED: levoFLOXacin 500 MG/100 ML 500 MG/100 ML BAG IVPB SCH (11:45)
[2021-05-29] MEDS: Gabapentin 100 MG CAPSULE PO SCH ×3 (15:09→20:48)
[2021-05-29] MEDS ORDERED: Insulin LISPRO 300 UNITS/3 ML VIAL SUBQ SCH (21:00)
[2021-05-30] MEDS: Ipratropium 1 PUFF INHALER IH SCH ×4 (04:01→22:03)
[2021-05-30] MEDS: Insulin LISPRO 300 UNITS/3 ML VIAL SUBQ SCH ×4 (08:44→21:10)
[2021-05-30] MEDS: *HR* Ticagrelor 90 MG TABLET PO SCH ×2 (08:51→21:08)
[2021-05-30] MEDS: Aspirin Enteric Coated 81 MG Tablet PO SCH (08:51)
[2021-05-30] MEDS: *HR* SitaGLIPtin 25 MG TABLET PO SCH (08:51)
[2021-05-30] MEDS: *HR* Amiodarone 200 MG TABLET PO SCH ×2 (08:51→09:35)
[2021-05-30] MEDS: Gabapentin 100 MG CAPSULE PO SCH ×3 (08:51→21:08)
[2021-05-30] MEDS: Multivit/Ca/Min/Fe/FA 1 TAB TABLET PO SCH (08:52)
[2021-05-30] MEDS: Chlorhexidine Rinse 15 ML MOUTHWASH MM SCH ×2 (08:53→21:09)
[2021-05-30] MEDS: EMPAGLIFLOZIN 10 MG PO SCH (08:53)
[2021-05-30] MEDS: Apixaban 5 MG TABLET PO SCH ×2 (08:53→21:09)
[2021-05-30] MEDS: Nystatin POWDER 30 GM BOTTLE TP SCH ×3 (08:53→21:09)
[2021-05-30] MEDS: *HR* Digoxin 0.125 MG TABLET PO SCH (08:53)
[2021-05-30] MEDS: Spironolactone 25 MG TABLET PO SCH (08:55)
[2021-05-30] MEDS: Furosemide 40 MG TABLET PO SCH (08:59)
[2021-05-30] MEDS: DilTIAZem CD (24hr) 120 MG CAP.ER.24H PO SCH (08:59)
[2021-05-30] MEDS ORDERED: 0.9 % Sodium Chloride 250 ML IVC ONE (09:04)
[2021-05-30] MEDS: Budesonide/Formoterol 160/4.5 1 PUFF INH IH SCH ×2 (09:19→22:04)
[2021-05-30] MEDS: LEVOFLOXACIN 250 MG/50 ML IVPB SCH (13:30)
[2021-05-30 15:35] LABS: Hematocrit 41.1 % (37.5-50.1); Hemoglobin 13.1 g/dL (12.9-16.9); Mean Corpuscular HGB Conc 31.9 g/dL (31.6-35.5); Mean Corpuscular Hemoglobin 29.4 pg (28.0-33.3); Mean Corpuscular Volume 92.2 fL (83.0-100.0); Mean Platelet Volume 9.9 fL (9.4-12.4); Platelet Count 379 K/mcL (140-400); Red Blood Count 4.46 M/mcL (4.19-5.50); Red Cell Distribution Width 17.3 % (11.5-14.5); White Blood Count 17.2 K/mcL (4.3-11.1)
[2021-05-30 15:51] LABS: BUN/Creatinine Ratio 14 (6-26); Blood Urea Nitrogen 20 mg/dL (8-23); Calcium 7.9 mg/dL (8.6-10.3); Carbon Dioxide 23 mEq/L (23-29); Chloride 105 mEq/L (98-107); Glucose 151 mg/dL (70-105); Magnesium 2.2 mg/dL (1.6-2.6); Osmolality,Calculated 284 (280-300); Potassium 4.7 mEq/L (3.5-5.1); Sodium 134 mEq/L (136-145); eGFR For African Americans > 60 (> 60); eGFR For Non-African Americans 52 (> 60)
[2021-05-31] MEDS: Ipratropium 1 PUFF INHALER IH SCH ×4 (04:55→22:31)
[2021-05-31] MEDS: DilTIAZem CD (24hr) 120 MG CAP.ER.24H PO SCH (07:31)
[2021-05-31] MEDS: Spironolactone 25 MG TABLET PO SCH (07:31)
[2021-05-31] MEDS: *HR* Digoxin 0.125 MG TABLET PO SCH (07:32)
[2021-05-31] MEDS: *HR* Amiodarone 200 MG TABLET PO SCH (07:32)
[2021-05-31] MEDS: EMPAGLIFLOZIN 10 MG PO SCH (07:32)
[2021-05-31] MEDS: Insulin LISPRO 300 UNITS/3 ML VIAL SUBQ SCH ×4 (07:41→23:41)
[2021-05-31] MEDS ORDERED: Furosemide 40 MG TABLET PO SCH (09:00)
[2021-05-31] MEDS: *HR* SitaGLIPtin 25 MG TABLET PO SCH (10:02)
[2021-05-31] MEDS: Nystatin POWDER 30 GM BOTTLE TP SCH ×3 (10:02→21:26)
[2021-05-31] MEDS: Chlorhexidine Rinse 15 ML MOUTHWASH MM SCH ×2 (10:02→21:26)
[2021-05-31] MEDS: *HR* Ticagrelor 90 MG TABLET PO SCH ×2 (10:02→21:26)
[2021-05-31] MEDS: Aspirin Enteric Coated 81 MG Tablet PO SCH (10:02)
[2021-05-31] MEDS: Apixaban 5 MG TABLET PO SCH ×2 (10:02→21:26)
[2021-05-31] MEDS: Multivit/Ca/Min/Fe/FA 1 TAB TABLET PO SCH (10:02)
[2021-05-31] MEDS: Gabapentin 100 MG CAPSULE PO SCH ×3 (10:02→21:25)
[2021-05-31] MEDS: Budesonide/Formoterol 160/4.5 1 PUFF INH IH SCH ×2 (10:03→22:30)
[2021-05-31 10:06] LABS: Hematocrit 39.1 % (37.5-50.1); Hemoglobin 12.6 g/dL (12.9-16.9); Mean Corpuscular HGB Conc 32.2 g/dL (31.6-35.5); Mean Corpuscular Hemoglobin 29.2 pg (28.0-33.3); Mean Corpuscular Volume 90.5 fL (83.0-100.0); Mean Platelet Volume 10.1 fL (9.4-12.4); Platelet Count 355 K/mcL (140-400); Red Blood Count 4.32 M/mcL (4.19-5.50); Red Cell Distribution Width 17.5 % (11.5-14.5); White Blood Count 17.7 K/mcL (4.3-11.1)
[2021-05-31] MEDS ORDERED: 0.9 % Sodium Chloride 250 ML IVC ONE (10:10)
[2021-05-31 10:19] LABS: BUN/Creatinine Ratio 17 (6-26); Blood Urea Nitrogen 17 mg/dL (8-23); Calcium 7.7 mg/dL (8.6-10.3); Carbon Dioxide 22 mEq/L (23-29); Chloride 105 mEq/L (98-107); Glucose 92 mg/dL (70-105); Osmolality,Calculated 275 (280-300); Potassium 4.6 mEq/L (3.5-5.1); Sodium 132 mEq/L (136-145); eGFR For African Americans > 60 (> 60); eGFR For Non-African Americans > 60 (> 60)
[2021-05-31] MEDS: LEVOFLOXACIN 250 MG/50 ML IVPB SCH (14:03)
[2021-06-01] MEDS: Ipratropium 1 PUFF INHALER IH SCH ×2 (05:06→10:55)
[2021-06-01 07:56] VITALS: BP 98/54; PULSE 61; TEMP 98.3
[2021-06-01] MEDS: Insulin LISPRO 300 UNITS/3 ML VIAL SUBQ SCH ×2 (09:05→11:17)
[2021-06-01] MEDS: Chlorhexidine Rinse 15 ML MOUTHWASH MM SCH (09:12)
[2021-06-01] MEDS: Aspirin Enteric Coated 81 MG Tablet PO SCH (09:12)
[2021-06-01] MEDS: *HR* Digoxin 0.125 MG TABLET PO SCH (09:13)
[2021-06-01] MEDS: Multivit/Ca/Min/Fe/FA 1 TAB TABLET PO SCH (09:13)
[2021-06-01] MEDS: Gabapentin 100 MG CAPSULE PO SCH ×2 (09:13→14:11)
[2021-06-01] MEDS: Apixaban 5 MG TABLET PO SCH (09:13)
[2021-06-01] MEDS: *HR* SitaGLIPtin 25 MG TABLET PO SCH (09:14)
[2021-06-01] MEDS: Nystatin POWDER 30 GM BOTTLE TP SCH ×2 (10:11→14:11)
[2021-06-01] MEDS: EMPAGLIFLOZIN 10 MG PO SCH (10:11)
[2021-06-01] MEDS: Budesonide/Formoterol 160/4.5 1 PUFF INH IH SCH (10:55)
[2021-06-01] MEDS: *HR* Ticagrelor 90 MG TABLET PO SCH (11:17)
[2021-06-01 12:21] VITALS: RESP 18; O2SAT 99
[2021-06-01] MEDS: LEVOFLOXACIN 250 MG/50 ML IVPB SCH (14:09)
== END 2021-06-01 14:55 | disposition other institution (70) | DRG 193 ==
LOC: INPPIK 16:40 → EMEROOPIK 16:40 → INPPIK 18:57
PROVIDERS: ADMIT Nurse Practitioner Family; ATTEND Nurse Practitioner Family

== ENCOUNTER 2021-05-31 16:55 | Inpatient (IN) ==
[2021-06-01] MEDS ORDERED: Melatonin 3 MG TABLET PO PRN (15:33)
[2021-06-01] MEDS: Gabapentin 100 MG CAPSULE PO SCH ×2 (16:02→20:50)
[2021-06-01] MEDS: Apixaban 5 MG TABLET PO SCH (20:50)
[2021-06-01] MEDS: *HR* Ticagrelor 90 MG TABLET PO SCH (20:50)
[2021-06-01] MEDS: Budesonide/Formoterol 160/4.5 1 PUFF INH IH SCH (23:05)
[2021-06-02 06:49] LABS: Hematocrit 39.6 % (37.5-50.1); Hemoglobin 12.8 g/dL (12.9-16.9); Mean Corpuscular HGB Conc 32.3 g/dL (31.6-35.5); Mean Corpuscular Hemoglobin 29.3 pg (28.0-33.3); Mean Corpuscular Volume 90.6 fL (83.0-100.0); Mean Platelet Volume 9.8 fL (9.4-12.4); Platelet Count 284 K/mcL (140-400); Red Blood Count 4.37 M/mcL (4.19-5.50); Red Cell Distribution Width 17.8 % (11.5-14.5); White Blood Count 18.2 K/mcL (4.3-11.1)
[2021-06-02 07:30] LABS: BUN/Creatinine Ratio 13 (6-26); Blood Urea Nitrogen 12 mg/dL (8-23); Calcium 7.8 mg/dL (8.6-10.3); Carbon Dioxide 20 mEq/L (23-29); Chloride 105 mEq/L (98-107); Glucose 54 mg/dL (70-105); Osmolality,Calculated 271 (280-300); Potassium 4.5 mEq/L (3.5-5.1); Sodium 132 mEq/L (136-145); eGFR For African Americans > 60 (> 60); eGFR For Non-African Americans > 60 (> 60)
[2021-06-02 08:57] LABS: Anisocytosis 1+ (Not Present); Lymphocytes # 1.1 K/mcL (0.6-4.6); Monocytes # 0.4 K/mcL (0.0-1.3); Neutrophils # 16.7 K/mcL (1.6-8.9); Platelet Estimate Normal (Normal)
[2021-06-02] MEDS: Aspirin Enteric Coated 81 MG Tablet PO SCH (09:28)
[2021-06-02] MEDS: *HR* Ticagrelor 90 MG TABLET PO SCH ×2 (09:28→21:03)
[2021-06-02] MEDS: *HR* Digoxin 0.125 MG TABLET PO SCH (09:28)
[2021-06-02] MEDS: Gabapentin 100 MG CAPSULE PO SCH ×3 (09:28→21:02)
[2021-06-02] MEDS: Apixaban 5 MG TABLET PO SCH (09:29)
[2021-06-02] MEDS: *HR* SitaGLIPtin 100 MG TABLET PO SCH (09:29)
[2021-06-02] MEDS: levoFLOXacin 250 MG TABLET PO SCH (09:29)
[2021-06-02] MEDS: Budesonide/Formoterol 160/4.5 1 PUFF INH IH SCH ×2 (10:28→21:36)
[2021-06-02] MEDS ORDERED: D5% in Water 1,000 ML IVC PRN (17:43)
[2021-06-02] MEDS ORDERED: Dextrose Gel 15 GM/37.5 ML TUBE PO PRN ×2 (17:43)
[2021-06-02] MEDS ORDERED: *HR* Dextrose 50 % in Water (Syg) 50 ML SYRINGE IVP PRN (17:43)
[2021-06-02] MEDS ORDERED: Insulin LISPRO 300 UNITS/3 ML VIAL SUBQ SCH (21:00)
[2021-06-02 21:31] LABS: Estimated Average Glucose 160 mg/dl; Hemoglobin A1C 7.2 %
[2021-06-03] MEDS: 0.9 % Sodium Chloride 500 ML IVC PRN ×2 (01:26→04:24)
[2021-06-03 02:41] LABS: VBG HCO3 18 mEq/L (21-27); VBG PCO2 27 mmHg (41-51); VBG PH 7.43 pH Units (7.32-7.42); VBG PO2 42 mmHg (25-50)
[2021-06-03 03:00] LABS: Basophils # 0.1 K/mcL (0.0-0.2); Basophils % 0.4 %; Hemoglobin 11.1 g/dL (12.9-16.9); Immature Granulocytes % 5.4 % (0-4); Lymphocytes # 0.6 K/mcL (0.6-4.6); Lymphocytes % 3.4 %; Mean Corpuscular HGB Conc 32.6 g/dL (31.6-35.5); Mean Corpuscular Hemoglobin 29.4 pg (28.0-33.3); Mean Corpuscular Volume 90.2 fL (83.0-100.0); Mean Platelet Volume 10.1 fL (9.4-12.4); Monocytes # 0.5 K/mcL (0.0-1.3); Monocytes % 3.1 %; Neutrophils # 14.1 K/mcL (1.6-8.9); Platelet Count 254 K/mcL (140-400); Red Blood Count 3.77 M/mcL (4.19-5.50); Red Cell Distribution Width 17.6 % (11.5-14.5); Segmented Neutrophils % 87.7 %; White Blood Count 16.1 K/mcL (4.3-11.1)
[2021-06-03 06:41] LABS: Alanine Aminotransferase 28 Units/L (7-52); Albumin/Globulin Ratio 0.7 (1.1-2.2); Alkaline Phosphatase 73 Units/L (34-104); Aspartate Amino Transferase 54 Units/L (13-39); BUN/Creatinine Ratio 14 (6-26); Bilirubin,Direct 0.3 mg/dL (0.0-0.2); Bilirubin,Indirect 0.8 mg/dL (0.0-1.0); Bilirubin,Total 1.1 mg/dL (0.3-1.0); Blood Urea Nitrogen 14 mg/dL (8-23); Calcium 7.1 mg/dL (8.6-10.3); Carbon Dioxide 19 mEq/L (23-29); Chloride 105 mEq/L (98-107); Globulin 2.7 g/dL (2.4-3.5); Glucose 52 mg/dL (70-105); Osmolality,Calculated 266 (280-300); Potassium 4.3 mEq/L (3.5-5.1); Sodium 129 mEq/L (136-145); Total Protein 4.7 g/dL (6.4-8.9); eGFR For African Americans > 60 (> 60); eGFR For Non-African Americans > 60 (> 60)
[2021-06-03 06:43] LABS: Magnesium 1.9 mg/dL (1.6-2.6)
[2021-06-03] MEDS ORDERED: Insulin LISPRO 300 UNITS/3 ML VIAL SUBQ SCH (07:30)
[2021-06-03] MEDS: *HR* SitaGLIPtin 100 MG TABLET PO SCH (08:00)
[2021-06-03] MEDS ORDERED: Dexamethasone Sodium Phos/PF 10 MG/ML VIAL IVP ONE ×2 (08:45→08:58)
[2021-06-03] MEDS: Budesonide/Formoterol 160/4.5 1 PUFF INH IH SCH (08:55)
[2021-06-03 08:58] VITALS: RESP 22
[2021-06-03] MEDS ORDERED: dexAMETHasone 4 MG TABLET PO ONE (09:00)
[2021-06-03] MEDS: Gabapentin 100 MG CAPSULE PO SCH (09:07)
[2021-06-03] MEDS: Aspirin Enteric Coated 81 MG Tablet PO SCH (09:07)
[2021-06-03] MEDS: *HR* Ticagrelor 90 MG TABLET PO SCH (09:07)
[2021-06-03] MEDS: levoFLOXacin 250 MG TABLET PO SCH (09:07)
[2021-06-03] MEDS: *HR* Digoxin 0.125 MG TABLET PO SCH (09:08)
[2021-06-03] MEDS ORDERED: Remdesivir 200 MG in 0.9 % Sodium Chloride 100 ML IVPB ONE (10:00)
[2021-06-03 10:20] VITALS: TEMP 98.5
[2021-06-03] MEDS ORDERED: Albumin 25% 25gram/100mL 25 GM/100 ML IV.SOLN IVPB ONE (10:29)
[2021-06-03 10:51] VITALS: PULSE 60
[2021-06-03 10:52] VITALS: O2SAT 91
[2021-06-03 10:53] VITALS: BP 85/50
[2021-06-03 20:44] LABS: C-Reactive Protein 163 mg/L (Less than 10)
[2021-06-03 21:03] LABS: Ferritin 1421 ng/mL (20-250)
[2021-06-04] MEDS ORDERED: Remdesivir 100 MG in 0.9 % Sodium Chloride 100 ML IVPB SCH (10:00)
== END 2021-06-03 11:00 | disposition short-term general hospital (02) | DRG 189 ==
LOC: INPPIK 06-01 15:03
PROVIDERS: ADMIT Family Medicine; ATTEND Family Medicine